=== PATIENT | male | born 1985 | race American Indian/Alaskan Native ===

== ENCOUNTER 2017-06-03 14:37 | Emergency (ER) | payer MEDICAID ==
[2017-06-03] MEDS ORDERED: Ondansetron 4 MG/2 ML SDV IVPUSH ONE (14:57)
[2017-06-03] MEDS ORDERED: Sodium Chloride 0.9% 10 ML Syringe FLUSH PRN (14:57)
[2017-06-03] MEDS ORDERED: Sodium Chloride 0.9% 1,000 ML IV STA (14:57)
[2017-06-03] MEDS ORDERED: HYDROmorphone 1 MG/ML Syringe IVPUSH ONE (14:59)
[2017-06-03] MEDS ORDERED: LORazepam 2 MG/ML MDV IVPUSH ONE (15:00)
[2017-06-03] MEDS: HYDROmorphone 0.5 MG/0.5 ML SYRINGE ONE ×2 (15:14→15:20)
[2017-06-03] MEDS ORDERED: HYDROmorphone 0.5 MG/0.5 ML SYRINGE IVPUSH ONE ×2 (15:16→16:50)
[2017-06-03] MEDS ORDERED: Iopamidol 612 MG/ML 100 ML Bottle IVPUSH ONE (15:36)
[2017-06-03] MEDS ORDERED: Diatrizoate Meglumine/Diatrizoate Sodium 37% 120 ML Bottle PO ONE (15:36)
[2017-06-03] MEDS ORDERED: Sodium Chloride 0.9% 10 ML Syringe FLUSH ONE (15:36)
--- NOTE | 2017-06-03 17:01 | CT ---
CT abdomen and pelvis Technique: Multiple axial sections were obtained from above the dome of the diaphragm inferiorly through the pubic symphysis. Intravenous and oral contrast was utilized. Delayed images were also obtained from above the iliac crest inferiorly through the pubic symphysis. Comparison: No previous abdominal imaging. Findings: Small portion of the visualized lung bases shows nothing acute. Liver shows no focal parenchymal abnormality. Small amount of gastroesophageal reflux is seen into the distal esophagus. Spleen appears within normal limits. Adrenal glands show no nodule. Pancreas is unremarkable. Kidneys show symmetric contrast enhancement without hydronephrosis or mass. Aorta shows no aneurysmal dilatation. No retroperitoneal adenopathy or mesenteric abnormalities are seen. Several surgical clips are seen within the right lower abdomen compatible with previous appendectomy. No pelvic mass or adenopathy is seen. Delayed images shows contrast within the ureters and bladder. No free fluid or inflammatory change is seen. Bone window settings were reviewed which appear within normal limits for the patient's age. Small fat-containing umbilical hernia is incidentally noted. Impression: 1. Small amount of gastroesophageal reflux and other incidental findings. 2. Nothing acute is appreciated. Diagnostic code #2
--- NOTE | 2017-06-03 18:00 | EDM.PDOC ---
ED HPI GENERAL MEDICAL PROBLEM - General Chief Complaint: Abdominal Pain Stated Complaint: [facility] Time Seen by Provider: 06/03/17 14:49 Source of Information: Reports: Patient, EMS History Limitations: Reports: No Limitations - History of Present Illness INITIAL COMMENTS - FREE TEXT/NARRATIVE: The patient presents with right sided abdominal pain. He had his appendix out 2months ago. He was told to take it easy lifting for a few months but he had to lift a heavy feeder and he pulled a muscle in his abdomen. He was seen in the ER in [place] and given a pain med and a muscle relaxer. He has no fever, chills, cough, nausea, vomiting, dysuria or hematuria. He has no other health problems. Onset: Gradual Duration: Week(s): (2) Location: Reports: Abdomen (Right side) Quality: Reports: Sharp Severity: Severe Improves with: Reports: Immobilization Worsens with: Reports: Movement Context: Reports: Activity (He was lifting a feeder 2 weeks ago and pulled a muscle) Associated Symptoms: Reports: No Other Symptoms Right Abdomen Pain Score (Numeric/FACES): 3 - Related Data Allergies Allergy/AdvReac Type Severity Reaction Status Date / Time No Known Allergies Allergy Verified 06/03/17 14:43 Home Meds: Home Meds Cyclobenzaprine HCl 5 mg PO Q8H PRN 06/03/17 [History] Diazepam [Valium] 5 mg PO TID PRN #20 tab 06/03/17 [Rx] Hydrocodone/Acetaminophen [Hydrocodon-Acetaminophen 5-325] 1 - 2 each PO Q6HR PRN #20 tablet 06/03/17 [Rx] Ondansetron [Zofran ODT] 4 mg PO Q6H PRN #20 tab.dis 06/03/17 [Rx] tiZANidine [Zanaflex] 2 mg PO Q8H PRN 06/03/17 [History] Past Medical History Gastrointestinal History: Reports: Other (See Below) Other Gastrointestinal History: torn abdominal muscles past 2 weeks. N/V for past 3 days. States had BM yesterday. Musculoskeletal History: Reports: Other (See Below) Other Musculoskeletal History: muscle tear Dx recently. Endocrine/Metabolic History: Reports: Diabetes, Type II, IDDM Other Endocrine/Metabolic History: states "suppose to be" on insulin--has not taken for 2 months. Social & Family History - Tobacco Use Smoking Status *Q: Current Some Day Smoker Years of Tobacco use: 10 Packs/Tins Daily: 0.2 Second Hand Smoke Exposure: No - Caffeine Use Caffeine Use: Reports: Coffee, Energy Drinks - Recreational Drug Use Recreational Drug Type: Reports: Marijuana/Hashish ED ROS GENERAL - Review of Systems Review Of Systems: See Below Constitutional: Reports: No Symptoms HEENT: Reports: No Symptoms Respiratory: Reports: No Symptoms Cardiovascular: Reports: No Symptoms Endocrine: Reports: No Symptoms GI/Abdominal: Reports: Abdominal Pain. Denies: Nausea, Vomiting : Reports: No Symptoms Musculoskeletal: Reports: No Symptoms Skin: Reports: No Symptoms Neurological: Reports: No Symptoms ED EXAM, GI/ABD - Physical Exam Exam: See Below Exam Limited By: No Limitations General Appearance: Alert, No Apparent Distress Ears: Normal External Exam Nose: Normal Inspection Head: Atraumatic, Normocephalic Neck: Normal Inspection Respiratory/Chest: No Respiratory Distress, Lungs Clear, Normal Breath Sounds Cardiovascular: Regular Rate, Rhythm, No Edema, No Murmur GI/Abdominal Exam: Soft, No Organomegaly, No Mass, Tender (Moderate pain upon palpation to the right side of his abdomen to the upper and lower abdomen) Course - Vital Signs Last Recorded V/S: Last Vital Signs Temp 98.6 F 06/03/17 14:37 Pulse 88 06/03/17 16:00 Resp 36 H 06/03/17 16:00 BP 137/90 06/03/17 16:00 Pulse Ox 99 06/03/17 16:00 - Orders/Labs/Meds Orders: Active Orders 24 hr Category Date Time Status Peripheral IV Care [RC] . DIRECTED Care 06/03/17 14:58 Active Sodium Chloride 0.9% [Saline Flush] Med 06/03/17 14:57 Active 10 ml FLUSH ASDIRECTED PRN ED Antiemetic Medication Reflex [OM.PC] Stat Oth 06/03/17 14:58 Ordered Peripheral IV Insertion Adult [OM.PC] Stat Oth 06/03/17 14:57 Ordered Medication Orders Sodium Chloride (Saline Flush) 10 ml FLUSH ASDIRECTED PRN PRN Reason: Keep Vein Open Last Admin: 06/03/17 15:10 Dose: 10 ml Labs: Laboratory Tests 06/03/17 06/03/17 06/03/17 Range/Units 15:05 15:05 16:30 WBC 7.69 (4.23-9.07) K/mm3 RBC 5.31 (4.63-6.08) M/mm3 Hgb 14.4 (13.7-17.5) gm/L Hct 40.3 (40.1-51.0) % MCV 75.9 L (79.0-92.2) fl MCH 27.1 (25.7-32.2) pg MCHC 35.7 H (32.2-35.5) g/dl RDW Std Deviation 37.8 (35.1-43.9) fL Plt Count 205 (163-337) K/mm3 MPV 8.8 L (9.4-12.3) fl Neut % (Auto) 75.5 H (34.0-67.9) % Lymph % (Auto) 14.7 L (21.8-53.1) % [place] % (Auto) 9.6 (5.3-12.2) % Eos % (Auto) 0 L (0.8-7.0) Baso % (Auto) 0.1 (0.1-1.2) % Neut # (Auto) 5.80 H (1.78-5.38) K/mm3 Lymph # (Auto) 1.13 L (1.32-3.57) K/mm3 [place] # (Auto) 0.74 (0.30-0.82) K/mm3 Eos # (Auto) 0.00 L (0.04-0.54) K/mm3 Baso # (Auto) 0.01 (0.01-0.08) K/mm3 Sodium 133 L (136-145) mEq/L Potassium 3.5 (3.5-5.1) mEq/L Chloride 97 L (98-107) mEq/L Carbon Dioxide 22 (21-32) mEq/L Anion Gap 17.5 H (5-15) BUN 9 (7-18) mg/dL Creatinine 0.7 (0.7-1.3) mg/dL Est Cr Clr Drug Dosing 141.64 mL/min Estimated GFR (MDRD) > 60 (>60) mL/min BUN/Creatinine Ratio 12.9 L (14-18) Glucose 193 H (74-106) mg/dL Calcium 8.5 (8.5-10.1) mg/dL Total Bilirubin 0.6 (0.2-1.0) mg/dL AST 13 L (15-37) U/L ALT 16 (16-63) U/L Alkaline Phosphatase 108 (46-116) U/L Total Protein 7.3 (6.4-8.2) g/dl Albumin 2.9 L (3.4-5.0) g/dl Globulin 4.4 gm/dL Albumin/Globulin Ratio 0.7 L (1-2) Lipase 101 (73-393) U/L Urine Color Yellow (Yellow) Urine Appearance Clear (Clear) Urine pH 6.5 (5.0-8.0) Ur Specific [place] 1.025 (1.005-1.030) Urine Protein 2+ H (Negative) Urine Glucose (UA) 2+ H (Negative) Urine Ketones 3+ H (Negative) Urine Occult Blood Negative (Negative) Urine Nitrite Negative (Negative) Urine Bilirubin 1+ H (Negative) Urine Urobilinogen 0.2 (0.2-1.0) Ur Leukocyte Esterase Negative (Negative) Urine RBC Not seen (0-5) /hpf Urine WBC 0-5 (0-5) /hpf Ur Epithelial Cells 0-5 (0-5) /hpf Urine Bacteria Rare (FEW) /hpf Urine Mucus Not seen (FEW) /hpf Meds: Medications Generic Name Dose Route Start Last Admin Trade Name Angie PRN Reason Stop Dose Admin Sodium Chloride 10 ml 06/03/17 14:57 06/03/17 15:10 Saline Flush FLUSH 10 ml ASDIRECTED PRN Administration Keep Vein Open Discontinued Medications Generic Name Dose Route Start Last Admin Trade Name Frebeatris PRN Reason Stop Dose Admin Diatrizoate Meglum/Diatrizoate Sod 90 ml 06/03/17 15:36 06/03/17 16:47 Gastrografin 37% PO 06/03/17 15:37 90 ml ONETIME ONE Administration Hydromorphone HCl 1 mg 06/03/17 14:59 06/03/17 15:20 Dilaudid IVPUSH 06/03/17 15:00 Not Given ONETIME ONE Hydromorphone HCl Confirm 06/03/17 15:11 06/03/17 15:20 Dilaudid Administered 06/03/17 15:12 Not Given Dose 1 mg .ROUTE .STK-MED ONE Hydromorphone HCl 1 mg 06/03/17 15:16 06/03/17 15:14 Dilaudid IVPUSH 06/03/17 15:17 1 mg ONETIME ONE Administration Hydromorphone HCl 0.5 mg 06/03/17 16:50 06/03/17 17:03 Dilaudid IVPUSH 06/03/17 16:51 0.5 mg ONETIME ONE Administration Sodium Chloride 1,000 mls @ 1,000 mls/hr 06/03/17 14:57 06/03/17 15:18 Normal Saline IV 06/03/17 15:56 1,000 mls/hr .BOLUS STA Administration Iopamidol 100 ml 06/03/17 15:36 06/03/17 16:47 Isovue-300 (61%) IVPUSH 06/03/17 15:37 100 ml ONETIME ONE Administration Lorazepam 1 mg 06/03/17 15:00 06/03/17 15:10 Ativan IVPUSH 06/03/17 15:01 1 mg ONETIME ONE Administration Ondansetron HCl 4 mg 06/03/17 14:57 06/03/17 15:12 Zofran IVPUSH 06/03/17 14:58 4 mg ONETIME ONE Administration Sodium Chloride 10 ml 06/03/17 15:36 06/03/17 16:47 Saline Flush FLUSH 06/03/17 15:37 10 ml ONETIME ONE Administration - Re-Assessments/Exams Free Text/Narrative Re-Assessment/Exam: 06/03/17 17:59 I ordered an IV NS 1L bolus, zofran 4mg IV, dilaudid 1mg IV, ativan 1mg IV, labs , UA and a CT of her abdomen and pelvis. 06/03/17 18:01 His CBC looks good. His Na was a little low at 133. His anion gap was elevated at 17.5. His glucose was elevated at 193. His UA shows no UTI. His CT shows small amount of gastroesophageal reflux and other incidental findings. Nothing acute is appreciated. He had more pain so I gave dilaudid 0.5mg IV. 06/03/17 18:10 He feels better. I feel this is abdominal wall contractions post surgery. I will give him something for the pain and some valium. Departure - Departure Time of Disposition: 18:10 Disposition: Home, Self-Care 01 Condition: Good Clinical Impression: Abdominal wall pain in right upper quadrant, Abdominal wall pain in right lower quadrant Abdominal pain Qualifiers: Abdominal location: upper abdomen, unspecified Qualified Code(s): R10.10 - Upper abdominal pain, unspecified - Discharge Information Prescriptions: Hydrocodone/Acetaminophen [Hydrocodon-Acetaminophen 5-325] 1 - 2 each PO Q6HR PRN #20 tablet PRN Reason: Pain Diazepam [Valium] 5 mg PO TID PRN #20 tab PRN Reason: Pain Ondansetron [Zofran ODT] 4 mg PO Q6H PRN #20 tab.dis PRN Reason: Nausea\\vomiting Referrals: PCP,[place] [Primary Care Provider] - Geovanna Parikh [Physician] - Forms: ED Department Discharge Additional Instructions: Take the medication as prescribed for the abdominal pain. You may also take some zofran for the nausea and vomiting. Follow up with your doctor or you can follow up with Dr Parikh at our clinic. Please return if you are worse. - My Orders Last 24 Hours: My Active Orders 06/03/17 14:57 Sodium Chloride 0.9% [Saline Flush] 10 ml FLUSH ASDIRECTED PRN Peripheral IV Insertion Adult [OM.PC] Stat 06/03/17 14:58 Peripheral IV Care [RC] . DIRECTED ED Antiemetic Medication Reflex [OM.PC] Stat - Assessment/Plan Last 24 Hours: My Active Orders 06/03/17 14:57 Sodium Chloride 0.9% [Saline Flush] 10 ml FLUSH ASDIRECTED PRN Peripheral IV Insertion Adult [OM.PC] Stat 06/03/17 14:58 Peripheral IV Care [RC] . DIRECTED ED Antiemetic Medication Reflex [OM.PC] Stat
== END 2017-06-03 18:30 | disposition home or self-care (01) ==
LOC: JD.ED 14:37
DX: R10.10 Upper abdominal pain, unspecified (principal); R10.31 Right lower quadrant pain; E11.9 Type 2 diabetes mellitus without complications; F17.210 Nicotine dependence, cigarettes, uncomplicated
CPT/HCPCS: 36415; 74177; 80053; 81001; 83690; 85025; 96361; 96374; 96375; 96376; 99285; J1170; J2060; J2405; J7040; J7050; Q9963; Q9967; 99284

== ENCOUNTER 2017-12-15 19:22 | Emergency (ER) | payer MEDICAID ==
[2017-12-15] MEDS ORDERED: Ondansetron 4 MG/2 ML SDV IVPUSH ONE ×2 (21:34→23:04)
[2017-12-15] MEDS ORDERED: HYDROmorphone 1 MG/ML Syringe IVPUSH ONE (21:49)
[2017-12-15] MEDS ORDERED: HYDROmorphone 0.5 MG/0.5 ML SYRINGE IVPUSH STA (23:06)
--- NOTE | 2017-12-15 23:07 | EDM.PDOC ---
ED HPI GENERAL MEDICAL PROBLEM - General Chief Complaint: Abdominal Pain Stated Complaint: [facility] Time Seen by Provider: 12/15/17 22:05 Source of Information: Reports: Patient, RN Notes Reviewed History Limitations: Reports: No Limitations - History of Present Illness INITIAL COMMENTS - FREE TEXT/NARRATIVE: The patient states that he has been constipated since , 12/11/2017. He took prune juice on Friday morning, 12/12/2017, followed by a bowel movement, nausea and vomiting. He states that this made him feel better. On Friday, 2017, he felt constipated again. Yesterday, 12/14/2017, the patient had nausea, emesis, and dry heaves. He had a bowel movement both yesterday and today , but his nausea and emesis have persisted. The patient also reports abdominal pain felt along the right side of his abdomen and across his lower abdomen, along with some pain in his right flank, since Friday evening, 12/13/2017. It is crampy and sharp in character, and waxes and wanes. The patient states that it is worse if he eats. No recent fever. No recent urinary symptoms. The patient states that he had similar symptoms on 06/03/2017, for which she was seen in this ED. Reviewing those medical records, she presented at that time with right-sided abdominal pain after lifting something heavy at work, about 2 months following an appendectomy. Workup included a CBC, CMP, lipase, urinalysis , and CT scan of the abdomen and pelvis. His sodium was found to be 133, and his blood glucose elevated at 193. His CT scan found a small amount of GERD, and other incidental findings, otherwise, his workup was unremarkable. The patient received a total of 3.5 mg IV Dilaudid in the ED, along with 1 mg IV Ativan. He was discharged home with 20 tablets of [place], 20 tablets of Valium, and Zofran. The patient states that he has diabetes, and that he checks his blood glucose every other day. A normal range for him is between 220 and 250. He states that he is compliant with all of his medications. The patient states that he smokes marijuana on occasion, most recently at noon today. The patient states that his PCP is at [facility]. Lower Abdominal Pain Score (Numeric/FACES): 8 - Related Data Allergies Allergy/AdvReac Type Severity Reaction Status Date / Time No Known Allergies Allergy Verified 12/19/17 15:48 Home Meds: Home Meds Cyclobenzaprine HCl 5 mg PO Q8H PRN 06/03/17 [History] Hydrocodone/Acetaminophen [Hydrocodon-Acetaminophen 5-325] 1 - 2 each PO Q6HR PRN #20 tablet 06/03/17 [Rx] tiZANidine [Zanaflex] 2 mg PO Q8H PRN 06/03/17 [History] Ondansetron [Zofran ODT] 4 mg PO Q6H PRN #20 tab.dis 12/17/17 [Rx] Ondansetron [Zofran ODT] 4 mg PO Q6H PRN #15 tab.dis 12/19/17 [Rx] Past Medical History Cardiovascular History: Reports: High Cholesterol, Hypertension Endocrine/Metabolic History: Reports: Diabetes, Type II - Past Surgical History HEENT Surgical History: Reports: Oral Surgery (wisdom teeth extraction) GI Surgical History: Reports: Appendectomy (Feb 2017, at [facility]) Social & Family History - Tobacco Use Smoking Status *Q: Current Some Day Smoker Years of Tobacco use: 17 Packs/Tins Daily: 0.2 Packs/Tins Daily Comment: Down from 04/08 ppd - Caffeine Use Caffeine Use: Reports: Coffee, Energy Drinks - Alcohol Use Alcohol Use History: Yes Alcohol Use Frequency: Socially - Recreational Drug Use Recreational Drug Use: Yes Drug Use in Last 12 Months: Yes Recreational Drug Type: Reports: Marijuana/Hashish (smokes on occasion, last = ) Recreational Drug Use Frequency: Socially - Living Situation & Occupation Living situation: Reports: Single, with Significant Other (Girlfriend) Occupation: Employed (Maintenance) ED ROS GENERAL - Review of Systems Review Of Systems: ROS reveals no pertinent complaints other than HPI. ED EXAM, GI/ABD - Physical Exam Exam: See Below Exam Limited By: No Limitations General Appearance: Alert, WD/WN, Mild Distress (complaining of abdominal pain) Eyes: Bilateral: Normal Appearance, EOMI Ears: Normal External Exam, Hearing Grossly Normal Nose: Normal Inspection, No Blood Throat/Mouth: Normal Inspection, Normal Lips, Normal Voice, No Airway Compromise Head: Atraumatic, Normocephalic Neck: Normal Inspection, Full Range of Motion Respiratory/Chest: No Respiratory Distress, Lungs Clear, Normal Breath Sounds, No Accessory Muscle Use Cardiovascular: Normal Peripheral Pulses, Regular Rate, Rhythm, No Edema, No Gallop, No JVD, No Murmur, No Rub GI/Abdominal Exam: Soft, No Organomegaly, No Distention, No Abnormal Bruit, No Mass, Tender (generalized, non-focal), Abnormal Bowel Sounds (decreased) (Male) Exam: Deferred Rectal (Males) Exam: Deferred Back Exam: Normal Inspection, Full Range of Motion. No: CVA Tenderness (L), CVA Tenderness (R) Extremities: Normal Inspection, Normal Range of Motion, No Pedal Edema, Normal Capillary Refill Neurological: Alert, Oriented, Normal Cognition, No Motor/Sensory Deficits Psychiatric: Normal Affect Skin Exam: Warm, Dry, Intact, Normal Color, No Rash Course - Vital Signs Last Recorded V/S: Last Vital Signs Temp 35.9 C 12/15/17 19:29 Pulse 98 12/15/17 19:29 Resp 18 12/15/17 19:29 BP 129/90 12/15/17 19:29 Pulse Ox 100 12/15/17 19:29 - Orders/Labs/Meds Labs: Laboratory Tests 12/15/17 12/15/17 12/16/17 Range/Units 21:30 21:30 02:10 WBC 13.53 H (4.23-9.07) K/mm3 RBC 5.68 (4.63-6.08) M/mm3 Hgb 16.2 (13.7-17.5) gm/L Hct 45.5 (40.1-51.0) % MCV 80.1 (79.0-92.2) fl MCH 28.5 (25.7-32.2) pg MCHC 35.6 H (32.2-35.5) g/dl RDW Std Deviation 37.8 (35.1-43.9) fL Plt Count 244 (163-337) K/mm3 MPV 9.1 L (9.4-12.3) fl Neutrophils % (Manual) 95 H (40-60) % Band Neutrophils % 0 (0-10) % Lymphocytes % (Manual) 5 L (20-40) % Atypical Lymphs % 0 % Monocytes % (Manual) 0 L (2-10) % Eosinophils % (Manual) 0 L (0.8-7.0) % Basophils % (Manual) 0 L (0.2-1.2) Platelet Estimate Adequate Plt Morphology Comment Normal RBC Morph Comment Normal Sodium 140 (136-145) mEq/L Potassium 4.2 (3.5-5.1) mEq/L Chloride 102 (98-107) mEq/L Carbon Dioxide 23 (21-32) mEq/L Anion Gap 19.2 H (5-15) BUN 22 H (7-18) mg/dL Creatinine 1.0 (0.7-1.3) mg/dL Est Cr Clr Drug Dosing 98.23 mL/min Estimated GFR (MDRD) > 60 (>60) mL/min BUN/Creatinine Ratio 22.0 H (14-18) Glucose 222 H (74-106) mg/dL Calcium 9.5 (8.5-10.1) mg/dL Total Bilirubin 0.7 (0.2-1.0) mg/dL AST 23 (15-37) U/L ALT 49 (16-63) U/L Alkaline Phosphatase 103 (46-116) U/L C-Reactive Protein 0.3 (<1.0) mg/dL Total Protein 8.7 H (6.4-8.2) g/dl Albumin 4.4 (3.4-5.0) g/dl Globulin 4.3 gm/dL Albumin/Globulin Ratio 1.0 (1-2) Lipase 73 (73-393) U/L Urine Color Yellow (Yellow) Urine Appearance Clear (Clear) Urine pH 5.5 (5.0-8.0) Ur Specific [place] 1.015 (1.005-1.030) Urine Protein Negative (Negative) Urine Glucose (UA) 2+ H (Negative) Urine Ketones 3+ H (Negative) Urine Occult Blood Trace-intact H (Negative) Urine Nitrite Negative (Negative) Urine Bilirubin Negative (Negative) Urine Urobilinogen 0.2 (0.2-1.0) Ur Leukocyte Esterase Negative (Negative) Urine RBC 0-5 (0-5) /hpf Urine WBC 0-5 (0-5) /hpf Ur Epithelial Cells Not seen (0-5) /hpf Urine Bacteria Not seen (FEW) /hpf Urine Mucus Few (FEW) /hpf Meds: Medications Discontinued Medications Generic Name Dose Route Start Last Admin Trade Name Angie PRN Reason Stop Dose Admin Hydromorphone HCl 0.5 mg 12/15/17 21:49 12/15/17 21:55 Dilaudid IVPUSH 12/15/17 21:50 0.5 mg ONETIME ONE Administration Hydromorphone HCl 1 mg 12/15/17 23:06 12/15/17 23:23 Dilaudid IVPUSH 12/15/17 23:07 1 mg ONETIME STA Administration Hydromorphone HCl 1 mg 12/16/17 00:40 12/16/17 00:45 Dilaudid IVPUSH 12/16/17 00:41 1 mg ONETIME STA Administration Sodium Chloride 1,000 mls @ 150 mls/hr 12/15/17 23:15 12/15/17 23:22 Normal Saline IV 150 mls/hr ASDIRECTED [place] Administration Ondansetron HCl 4 mg 12/15/17 21:34 12/15/17 21:44 Zofran IVPUSH 12/15/17 21:35 4 mg ONETIME ONE Administration Ondansetron HCl 4 mg 12/15/17 23:04 12/15/17 23:23 Zofran IVPUSH 12/15/17 23:05 4 mg ONETIME ONE Administration - Re-Assessments/Exams Free Text/Narrative Re-Assessment/Exam: 12/15/17 23:07 I'm concerned that there is something significant occurring with this patient, as he has significant abdominal pain and tenderness. The patient's blood work is unremarkable. I have ordered a urinalysis and a CT scan of the abdomen and pelvis with oral and IV contrast. He will receive additional Dilaudid, additional Zofran, and IV fluid. 12/15/17 02:45 CT of the abdomen and pelvis with oral and IV contrast is read by [facility] as: Status post appendectomy No acute intra-abdominal process 12/16/17 03:07 Test results discussed with the patient. Kamila's workup is entirely unremarkable, and does not explain the cause of his pain. I do not see an indication to admit the patient to the hospital. I offered to prescribe some Zofran, and will send a prescription to [facility] in [place]. The patient then asked for a prescription for pain medication. I explained that with a negative workup, I was not in a position to prescribe pain medication, and that he would have to take Tylenol or ibuprofen. The patient immediately turned hostile and stated that I was calling him a faker and that I told him that I didn't want to prescribe pain medication simply because I didn't feel like it, and that he didn't like what I was saying, which is not what I had just told him. This behavior, however, in conjunction with his negative workup, is strongly suggestive of drug-seeking behavior. Departure - Departure Time of Disposition: 03:02 Disposition: Home, Self-Care 01 Condition: Good Clinical Impression: Drug-seeking behavior Nausea & vomiting Qualifiers: Vomiting type: unspecified Vomiting Intractability: non-intractable Qualified Code(s): R11.2 - Nausea with vomiting, unspecified - Discharge Information *PRESCRIPTION DRUG MONITORING PROGRAM REVIEWED*: Not Applicable *COPY OF PRESCRIPTION DRUG MONITORING REPORT IN PATIENT DION: Not Applicable Instructions: Nausea and Vomiting, Adult, [id number] Referrals: PCP,None [Primary Care Provider] - Forms: ED Department Discharge Additional Instructions: You were seen in the emergency room for nausea, vomiting, and abdominal pain. Workup in the ER included blood work, urinalysis, and a CT scan of your abdomen and pelvis. Your entire workup was unremarkable, and does not explain the cause of your pain. A prescription for the anti-nausea medicine Zofran has been sent to [facility], [address] [place] [address]. Dissolve one tablet of Zofran on your tongue up to every 8 hours, as needed for nausea/vomiting. Stay well hydrated. Take [id number] Tylenol or ibuprofen as needed for pain. If you need something stronger, please see your primary care physician. If any other problems, please do not hesitate to return to the ER.
[2017-12-15] MEDS ORDERED: Sodium Chloride 0.9% 1,000 ML IV SCH (23:15)
[2017-12-16] MEDS ORDERED: HYDROmorphone 0.5 MG/0.5 ML SYRINGE IVPUSH STA (00:40)
--- NOTE | 2017-12-16 07:45 | CT ---
CT abdomen and pelvis Technique: Multiple axial sections were obtained from above the dome of the diaphragm inferiorly through the pubic symphysis. Intravenous and oral contrast was utilized. Delayed images were obtained through the bladder. Comparison: Prior CT abdomen and pelvis exam of 06/03/17. Findings: Visualized lung bases show nothing acute. Liver shows no focal parenchymal abnormality. Spleen appears within normal limits. Adrenal glands show no nodule. Pancreas is within normal limits. Gallbladder contains no calcified gallstones. Kidneys show symmetric contrast enhancement without hydronephrosis or mass. Aorta shows no aneurysm. Surgical material is seen off the tip of the cecum compatible with previous appendectomy. No retroperitoneal adenopathy or mesenteric abnormalities are seen. No pelvic mass or adenopathy is seen. Delayed images show contrast within the distal ureters and bladder. Bone window settings were reviewed which appear within normal limits for the patient's age. Impression: 1. Nothing acute is seen on CT study of the abdomen and pelvis. Diagnostic code #2 I agree with preliminary report issued by [facility] ([facility] preliminary report dictated on 12/16/17, 3:51 AM Central Time)
== END 2017-12-16 03:12 | disposition home or self-care (01) ==
LOC: JD.ED 19:22
DX: R11.2 Nausea with vomiting, unspecified (principal); R10.84 Generalized abdominal pain; Z76.5 Malingerer [conscious simulation]; Z90.49 Acquired absence of other specified parts of digestive tract; F17.210 Nicotine dependence, cigarettes, uncomplicated; I10 Essential (primary) hypertension; E11.9 Type 2 diabetes mellitus without complications
CPT/HCPCS: 36415; 74177; 80053; 81001; 83690; 85007; 85027; 86140; 96361; 96374; 96375; 96376; 99285; J1170; J2405; J7040

== ENCOUNTER 2017-12-17 16:40 | Emergency (ER) | payer MEDICAID ==
[2017-12-17] MEDS ORDERED: Sodium Chloride 0.9% 10 ML Syringe FLUSH PRN (16:56)
[2017-12-17] MEDS ORDERED: Sodium Chloride 0.9% 1,000 ML IV STA (16:56)
[2017-12-17] MEDS ORDERED: Ondansetron 4 MG/2 ML SDV IVPUSH ONE (16:56)
[2017-12-17] MEDS ORDERED: HYDROmorphone 0.5 MG/0.5 ML SYRINGE IVPUSH ONE ×2 (16:57→18:35)
--- NOTE | 2017-12-17 17:04 | EDM.PDOC ---
ED HPI GENERAL MEDICAL PROBLEM - General Chief Complaint: Abdominal Pain Stated Complaint: [facility] Time Seen by Provider: 12/17/17 16:45 Source of Information: Reports: Patient, EMS History Limitations: Reports: No Limitations - History of Present Illness INITIAL COMMENTS - FREE TEXT/NARRATIVE: The patient presents with lower abdominal pain. This has been going on since Friday. He was seen here on Friday and he had a complete work up to include labs and a CT of his abdomen and pelvis. He had nothing acute found. He was offered some zofran and he wanted something for the pain but he did not get anything. He went home and felt better and ate a large meal and the pain, nausea and vomiting started again. He has no fever or chills. He has no chest pain, shortness of breath, or diarrhea. He had a normal bowel movement last night. Onset: Gradual Duration: Day(s): Location: Reports: Abdomen Quality: Reports: Sharp Severity: Severe Improves with: Reports: None Worsens with: Reports: None Associated Symptoms: Reports: Nausea/Vomiting. Denies: Chest Pain, Fever/Chills , Headaches, Shortness of Breath Abdominal Pain Score (Numeric/FACES): 10 - Related Data Allergies Allergy/AdvReac Type Severity Reaction Status Date / Time No Known Allergies Allergy Verified 12/17/17 16:45 Home Meds: Home Meds Cyclobenzaprine HCl 5 mg PO Q8H PRN 06/03/17 [History] Hydrocodone/Acetaminophen [Hydrocodon-Acetaminophen 5-325] 1 - 2 each PO Q6HR PRN #20 tablet 06/03/17 [Rx] Ondansetron [Zofran ODT] 4 mg PO Q6H PRN #20 tab.dis 06/03/17 [Rx] diazePAM [Valium] 5 mg PO TID PRN #20 tab 06/03/17 [Rx] tiZANidine [Zanaflex] 2 mg PO Q8H PRN 06/03/17 [History] Ondansetron [Zofran ODT] 1 tab PO Q8H PRN #10 tab.dis 12/16/17 [Rx] Hydrocodone/Acetaminophen [Hydrocodon-Acetaminophen 5-325] 1 - 2 each PO Q6HR PRN #10 tablet 12/17/17 [Rx] Ondansetron [Zofran ODT] 4 mg PO Q6H PRN #20 tab.dis 12/17/17 [Rx] Past Medical History Gastrointestinal History: Reports: Other (See Below) Other Gastrointestinal History: torn abdominal muscles past 2 weeks. N/V for past 3 days. States had BM yesterday. Musculoskeletal History: Reports: Other (See Below) Other Musculoskeletal History: muscle tear Dx recently. Endocrine/Metabolic History: Reports: Diabetes, Type II, IDDM Other Endocrine/Metabolic History: states "suppose to be" on insulin--has not taken for 2 months. - Past Surgical History GI Surgical History: Reports: Appendectomy Social & Family History - Tobacco Use Smoking Status *Q: Current Every Day Smoker Years of Tobacco use: 18 Packs/Tins Daily: 1 - Caffeine Use Caffeine Use: Reports: Soda - Recreational Drug Use Recreational Drug Use: Yes Drug Use in Last 12 Months: Yes Recreational Drug Type: Reports: Marijuana/Hashish ED ROS GENERAL - Review of Systems Review Of Systems: See Below Constitutional: Reports: No Symptoms HEENT: Reports: No Symptoms Respiratory: Reports: No Symptoms Cardiovascular: Reports: No Symptoms Endocrine: Reports: No Symptoms GI/Abdominal: Reports: Abdominal Pain, Nausea, Vomiting. Denies: Diarrhea : Reports: No Symptoms Musculoskeletal: Reports: No Symptoms ED EXAM, GI/ABD - Physical Exam Exam: See Below Exam Limited By: No Limitations General Appearance: Alert, Mild Distress Ears: Normal External Exam Nose: Normal Inspection Head: Atraumatic, Normocephalic Neck: Normal Inspection Respiratory/Chest: No Respiratory Distress, Lungs Clear, Normal Breath Sounds Cardiovascular: Regular Rate, Rhythm, No Edema, No Murmur GI/Abdominal Exam: Soft, Non-Tender, No Organomegaly, No Mass Back Exam: Normal Inspection Extremities: Normal Inspection Neurological: Alert, Oriented, No Motor/Sensory Deficits Course - Vital Signs Last Recorded V/S: Last Vital Signs Temp 97.1 F 12/17/17 16:45 Pulse 79 12/17/17 16:45 Resp 20 12/17/17 16:45 BP 161/93 H 12/17/17 16:45 Pulse Ox 99 12/17/17 16:45 - Orders/Labs/Meds Orders: Active Orders 24 hr Category Date Time Status Peripheral IV Care [RC] . DIRECTED Care 12/17/17 16:56 Active Abdomen Series w Chest 1V [CR] Stat Exams 12/17/17 16:56 Taken Sodium Chloride 0.9% [Saline Flush] Med 12/17/17 16:56 Active 10 ml FLUSH ASDIRECTED PRN ED Antiemetic Medication Reflex [OM.PC] Stat Oth 12/17/17 16:56 Ordered Peripheral IV Insertion Adult [OM.PC] Stat Oth 12/17/17 16:56 Ordered Medication Orders Sodium Chloride (Saline Flush) 10 ml FLUSH ASDIRECTED PRN PRN Reason: Keep Vein Open Last Admin: 12/17/17 17:12 Dose: 10 ml Labs: Laboratory Tests 12/17/17 12/17/17 Range/Units 17:20 17:20 WBC 7.58 (4.23-9.07) K/mm3 RBC 5.04 (4.63-6.08) M/mm3 Hgb 14.6 (13.7-17.5) gm/L Hct 40.4 (40.1-51.0) % MCV 80.2 (79.0-92.2) fl MCH 29.0 (25.7-32.2) pg MCHC 36.1 H (32.2-35.5) g/dl RDW Std Deviation 37.2 (35.1-43.9) fL Plt Count 219 (163-337) K/mm3 MPV 9.1 L (9.4-12.3) fl Neut % (Auto) 84.0 H (34.0-67.9) % Lymph % (Auto) 11.1 L (21.8-53.1) % [place] % (Auto) 4.5 L (5.3-12.2) % Eos % (Auto) 0.3 L (0.8-7.0) Baso % (Auto) 0.1 (0.1-1.2) % Neut # (Auto) 6.37 H (1.78-5.38) K/mm3 Lymph # (Auto) 0.84 L (1.32-3.57) K/mm3 [place] # (Auto) 0.34 (0.30-0.82) K/mm3 Eos # (Auto) 0.02 L (0.04-0.54) K/mm3 Baso # (Auto) 0.01 (0.01-0.08) K/mm3 Sodium 139 (136-145) mEq/L Potassium 3.8 (3.5-5.1) mEq/L Chloride 102 (98-107) mEq/L Carbon Dioxide 24 (21-32) mEq/L Anion Gap 16.8 H (5-15) BUN 15 (7-18) mg/dL Creatinine 0.9 (0.7-1.3) mg/dL Est Cr Clr Drug Dosing 109.15 mL/min Estimated GFR (MDRD) > 60 (>60) mL/min BUN/Creatinine Ratio 16.7 (14-18) Glucose 203 H (74-106) mg/dL Calcium 9.0 (8.5-10.1) mg/dL Total Bilirubin 0.8 (0.2-1.0) mg/dL AST 20 (15-37) U/L ALT 39 (16-63) U/L Alkaline Phosphatase 89 (46-116) U/L Total Protein 7.7 (6.4-8.2) g/dl Albumin 4.1 (3.4-5.0) g/dl Globulin 3.6 gm/dL Albumin/Globulin Ratio 1.1 (1-2) Lipase 138 (73-393) U/L Meds: Medications Generic Name Dose Route Start Last Admin Trade Name Freq PRN Reason Stop Dose Admin Sodium Chloride 10 ml 12/17/17 16:56 12/17/17 17:12 Saline Flush FLUSH 10 ml ASDIRECTED PRN Administration Keep Vein Open Discontinued Medications Generic Name Dose Route Start Last Admin Trade Name Freq PRN Reason Stop Dose Admin Hydromorphone HCl 0.5 mg 12/17/17 16:57 12/17/17 17:09 Dilaudid IVPUSH 12/17/17 16:58 0.5 mg ONETIME ONE Administration Sodium Chloride 1,000 mls @ 1,000 mls/hr 12/17/17 16:56 12/17/17 17:09 Normal Saline IV 12/17/17 17:55 1,000 mls/hr .BOLUS STA Administration Ondansetron HCl 4 mg 12/17/17 16:56 12/17/17 17:08 Zofran IVPUSH 12/17/17 16:57 4 mg ONETIME ONE Administration - Re-Assessments/Exams Free Text/Narrative Re-Assessment/Exam: 12/17/17 17:16 I ordered an IV NS 1L bolus, zofran 4mg IV, dilaudid 0.5mg IV, labs, UA and an x -ray of his abdomen. 12/17/17 18:33 His CBC looks good. His anion gap was elevated at 16.8. His glucose was elevated at 203. His lipase was normal. His abdominal x-ray looks good. His could be marijuana induced hyperemesis. Departure - Departure Time of Disposition: 18:40 Disposition: Home, Self-Care 01 Condition: Good Clinical Impression: Abdominal pain Qualifiers: Abdominal location: upper abdomen, unspecified Qualified Code(s): R10.10 - Upper abdominal pain, unspecified Nausea & vomiting Qualifiers: Vomiting type: unspecified Vomiting Intractability: non-intractable Qualified Code(s): R11.2 - Nausea with vomiting, unspecified - Discharge Information *PRESCRIPTION DRUG MONITORING PROGRAM REVIEWED*: No *COPY OF PRESCRIPTION DRUG MONITORING REPORT IN PATIENT DION: No Prescriptions: Hydrocodone/Acetaminophen [Hydrocodon-Acetaminophen 5-325] 1 - 2 each PO Q6HR PRN #10 tablet PRN Reason: Pain Ondansetron [Zofran ODT] 4 mg PO Q6H PRN #20 tab.dis PRN Reason: Nausea\\vomiting Referrals: PCP,None [Primary Care Provider] - Daphnie Martell NP [ED Midlevel Provider] - 1 Week Forms: ED Department Discharge Additional Instructions: Try to stop smoking marijuana. I think that is causing your symptoms. Drink plenty of fluids. Take some magnesium citrate to help you have a bowel movement. Take the zofran as needed for nausea and vomiting. Take hydrocodone as needed for pain. Please return if you are worse. - My Orders Last 24 Hours: My Active Orders 12/17/17 16:56 Peripheral IV Care [RC] . DIRECTED Abdomen Series w Chest 1V [CR] Stat Sodium Chloride 0.9% [Saline Flush] 10 ml FLUSH ASDIRECTED PRN ED Antiemetic Medication Reflex [OM.PC] Stat Peripheral IV Insertion Adult [OM.PC] Stat - Assessment/Plan Last 24 Hours: My Active Orders 12/17/17 16:56 Peripheral IV Care [RC] . DIRECTED Abdomen Series w Chest 1V [CR] Stat Sodium Chloride 0.9% [Saline Flush] 10 ml FLUSH ASDIRECTED PRN ED Antiemetic Medication Reflex [OM.PC] Stat Peripheral IV Insertion Adult [OM.PC] Stat
--- NOTE | 2017-12-18 07:30 | CR ---
Abdominal series: Supine and upright views of the abdomen were obtained as well as frontal view of the chest. Comparison: No prior abdominal x-ray or chest x-ray, previous CT exam of 12/16/17. Heart size and mediastinum are normal. Lungs are clear. Bowel gas pattern appears normal. Surgical material is seen within the right lower abdomen. No discrete soft tissue abnormality or free air is seen. Calcifications are seen within the pelvis most likely representing phleboliths. Incidental bone island is noted within the right hip. Impression: 1. Incidental findings. Nothing acute is appreciated on abdominal series. Diagnostic code #2
== END 2017-12-17 18:56 | disposition home or self-care (01) ==
LOC: JD.ED 16:40
DX: R10.10 Upper abdominal pain, unspecified (principal); R11.2 Nausea with vomiting, unspecified; F17.210 Nicotine dependence, cigarettes, uncomplicated; E11.9 Type 2 diabetes mellitus without complications
CPT/HCPCS: 36415; 74022; 80053; 83690; 85025; 96361; 96374; 96375; 96376; 99285; J1170; J2405; J7040; J7050

== ENCOUNTER 2017-12-19 15:42 | Emergency (ER) | payer MEDICAID ==
[2017-12-19] MEDS ORDERED: diphenhydrAMINE 50 MG/ML SDV IVPUSH ONE (17:21)
[2017-12-19] MEDS ORDERED: Sodium Chloride 0.9% 1,000 ML IV ONE ×2 (17:21→18:55)
[2017-12-19] MEDS ORDERED: Metoclopramide 10 MG/2 ML SDV IVPUSH ONE (17:21)
[2017-12-19] MEDS ORDERED: Ketorolac 30 MG/ML SDV IVPUSH ONE (17:21)
[2017-12-19] MEDS ORDERED: Haloperidol Lactate 5 MG/ML SDV IVPUSH ONE (19:55)
--- NOTE | 2017-12-19 19:55 | EDM.PDOC ---
ED HPI GENERAL MEDICAL PROBLEM - General Chief Complaint: Gastrointestinal Problem Stated Complaint: [facility] Time Seen by Provider: 12/19/17 17:00 Source of Information: Reports: Patient, Old Records (recent ED visits) History Limitations: Reports: No Limitations - History of Present Illness INITIAL COMMENTS - FREE TEXT/NARRATIVE: 32-year-old male arrives via [facility] for evaluation and treatment of abdominal pain. This is the patient's third visit the ER this week for similar complaints. He was seen in the ER on December 15 and December 17. He had a full workup done on December 15 including labs and a CT. No etiology was found. Discharged home. He was seen again on the . Had an x-ray and labs done at that time which showed no abnormalities. He was discharged home with pain medication. States he attempted to take these but vomited them up. Patient presents today as he reports the abdominal pain returned and is worsening. He states this located on his lower side of this abdomen and the right side of his abdomen. He reports associated symptoms of nausea and vomiting. He states he has been feeling feverish but has not checked his temperature at home. Has also been feeling chilled. Last bowel movement was this morning around 8 AM. No blood in his stool. No diarrhea. He reports that he attempted to eat today but that seemed to worsen the pain. Patient received 100 mcg of fentanyl and 5 mg of morphine en route to the ED. reports has helped with this pain but is now worsening again. Patient reports that he uses marijuana for recreational purposes. States he does not recall last time he used marijuana. Of note the patient has appreciated that hot showers seem to improve his abdominal pain. Previous abdominal surgeries including laparoscopic appendectomy. Right Abdomen Pain Score (Numeric/FACES): 9 - Related Data Allergies Allergy/AdvReac Type Severity Reaction Status Date / Time No Known Allergies Allergy Verified 12/19/17 15:48 Home Meds: Home Meds Cyclobenzaprine HCl 5 mg PO Q8H PRN 06/03/17 [History] Hydrocodone/Acetaminophen [Hydrocodon-Acetaminophen 5-325] 1 - 2 each PO Q6HR PRN #20 tablet 06/03/17 [Rx] tiZANidine [Zanaflex] 2 mg PO Q8H PRN 06/03/17 [History] Ondansetron [Zofran ODT] 4 mg PO Q6H PRN #20 tab.dis 12/17/17 [Rx] Ondansetron [Zofran ODT] 4 mg PO Q6H PRN #15 tab.dis 12/19/17 [Rx] Past Medical History Gastrointestinal History: Reports: Other (See Below) Other Gastrointestinal History: torn abdominal muscles past 2 weeks. N/V for past 3 days. States had BM yesterday. Musculoskeletal History: Reports: Other (See Below) Other Musculoskeletal History: muscle tear Dx recently. Endocrine/Metabolic History: Reports: Diabetes, Type II, IDDM Other Endocrine/Metabolic History: states "suppose to be" on insulin--has not taken for 2 months. - Past Surgical History GI Surgical History: Reports: Appendectomy Social & Family History - Tobacco Use Smoking Status *Q: Never Smoker - Caffeine Use Caffeine Use: Reports: Soda - Recreational Drug Use Recreational Drug Use: No ED ROS GENERAL - Review of Systems Review Of Systems: See Below Constitutional: Reports: Fever, Chills, Malaise GI/Abdominal: Reports: Abdominal Pain (lower abdomen and right side of abdomen) , Nausea, Vomiting. Denies: Bloody Stool, Diarrhea : Reports: No Symptoms ED EXAM, GI/ABD - Physical Exam Exam: See Below Exam Limited By: No Limitations General Appearance: Alert, WD/WN, Moderate Distress Throat/Mouth: Normal Inspection, Normal Voice, No Airway Compromise Respiratory/Chest: No Respiratory Distress, Lungs Clear, Normal Breath Sounds Cardiovascular: Normal Peripheral Pulses, Regular Rate, Rhythm, No Murmur GI/Abdominal Exam: Normal Bowel Sounds, Soft, Tender (diffusely tender to mild palpation, question exacerbation of symptoms). No: Rigid Back Exam: No: CVA Tenderness (L), CVA Tenderness (R) Neurological: Alert, Oriented, Normal Cognition Psychiatric: Normal Affect, Normal Mood Skin Exam: Warm, Dry, Normal Color Course - Vital Signs Last Recorded V/S: Last Vital Signs Temp 98.6 F 12/19/17 15:46 Pulse 71 12/19/17 15:46 Resp 16 12/19/17 15:46 BP 177/105 H 12/19/17 15:46 Pulse Ox 100 12/19/17 15:46 - Orders/Labs/Meds Labs: Laboratory Tests 12/19/17 12/19/17 12/19/17 Range/Units 18:10 18:10 19:03 WBC 7.97 (4.23-9.07) K/mm3 RBC 4.67 (4.63-6.08) M/mm3 Hgb 13.4 L (13.7-17.5) gm/L Hct 37.0 L (40.1-51.0) % MCV 79.2 (79.0-92.2) fl MCH 28.7 (25.7-32.2) pg MCHC 36.2 H (32.2-35.5) g/dl RDW Std Deviation 35.6 (35.1-43.9) fL Plt Count 237 (163-337) K/mm3 MPV 8.7 L (9.4-12.3) fl Neutrophils % (Manual) 76 H (40-60) % Band Neutrophils % 2 (0-10) % Lymphocytes % (Manual) 17 L (20-40) % Atypical Lymphs % 0 % Monocytes % (Manual) 5 (2-10) % Eosinophils % (Manual) 0 L (0.8-7.0) % Basophils % (Manual) 0 L (0.2-1.2) Platelet Estimate Adequate Plt Morphology Comment Normal Microcytosis 1+ slight RBC Morph Comment Not Reportable Sodium 139 (136-145) mEq/L Potassium 3.6 (3.5-5.1) mEq/L Chloride 102 (98-107) mEq/L Carbon Dioxide 25 (21-32) mEq/L Anion Gap 15.6 H (5-15) BUN 10 (7-18) mg/dL Creatinine 0.7 (0.7-1.3) mg/dL Est Cr Clr Drug Dosing 140.33 mL/min Estimated GFR (MDRD) > 60 (>60) mL/min BUN/Creatinine Ratio 14.3 (14-18) Glucose 147 H (74-106) mg/dL Calcium 8.4 L (8.5-10.1) mg/dL Total Bilirubin 0.9 (0.2-1.0) mg/dL AST 13 L (15-37) U/L ALT 24 (16-63) U/L Alkaline Phosphatase 83 (46-116) U/L C-Reactive Protein < 0.2 (<1.0) mg/dL Total Protein 7.1 (6.4-8.2) g/dl Albumin 3.8 (3.4-5.0) g/dl Globulin 3.3 gm/dL Albumin/Globulin Ratio 1.2 (1-2) Lipase 131 (73-393) U/L Urine Color Yellow (Yellow) Urine Appearance Clear (Clear) Urine pH 6.0 (5.0-8.0) Ur Specific [place] 1.025 (1.005-1.030) Urine Protein Negative (Negative) Urine Glucose (UA) 1+ H (Negative) Urine Ketones 3+ H (Negative) Urine Occult Blood 2+ H (Negative) Urine Nitrite Negative (Negative) Urine Bilirubin Negative (Negative) Urine Urobilinogen 0.2 (0.2-1.0) Ur Leukocyte Esterase Negative (Negative) Urine RBC 0-5 (0-5) /hpf Urine WBC 0-5 (0-5) /hpf Ur Epithelial Cells 0-5 (0-5) /hpf Urine Bacteria Rare (FEW) /hpf Urine Mucus Many H (FEW) /hpf Urine Opiates Screen (NEGATIVE) Ur Buprenorphine Scrn (NEGATIVE) Ur Oxycodone Screen (NEGATIVE) Urine Methadone Screen (NEGATIVE) Ur Propoxyphene Screen (NEGATIVE) Ur Barbiturates Screen (NEGATIVE) Ur Tricyclics Screen (NEGATIVE) Ur Phencyclidine Scrn (NEGATIVE) Ur Amphetamine Screen (NEGATIVE) U Methamphetamines Scrn (NEGATIVE) U Benzodiazepines Scrn (NEGATIVE) U Cocaine Metab Screen (NEGATIVE) U Marijuana (THC) Screen (NEGATIVE) 12/19/17 Range/Units 19:03 WBC (4.23-9.07) K/mm3 RBC (4.63-6.08) M/mm3 Hgb (13.7-17.5) gm/L Hct (40.1-51.0) % MCV (79.0-92.2) fl MCH (25.7-32.2) pg MCHC (32.2-35.5) g/dl RDW Std Deviation (35.1-43.9) fL Plt Count (163-337) K/mm3 MPV (9.4-12.3) fl Neutrophils % (Manual) (40-60) % Band Neutrophils % (0-10) % Lymphocytes % (Manual) (20-40) % Atypical Lymphs % % Monocytes % (Manual) (2-10) % Eosinophils % (Manual) (0.8-7.0) % Basophils % (Manual) (0.2-1.2) Platelet Estimate Plt Morphology Comment Microcytosis RBC Morph Comment Sodium (136-145) mEq/L Potassium (3.5-5.1) mEq/L Chloride (98-107) mEq/L Carbon Dioxide (21-32) mEq/L Anion Gap (5-15) BUN (7-18) mg/dL Creatinine (0.7-1.3) mg/dL Est Cr Clr Drug Dosing mL/min Estimated GFR (MDRD) (>60) mL/min BUN/Creatinine Ratio (14-18) Glucose (74-106) mg/dL Calcium (8.5-10.1) mg/dL Total Bilirubin (0.2-1.0) mg/dL AST (15-37) U/L ALT (16-63) U/L Alkaline Phosphatase (46-116) U/L C-Reactive Protein (<1.0) mg/dL Total Protein (6.4-8.2) g/dl Albumin (3.4-5.0) g/dl Globulin gm/dL Albumin/Globulin Ratio (1-2) Lipase (73-393) U/L Urine Color (Yellow) Urine Appearance (Clear) Urine pH (5.0-8.0) Ur Specific [place] (1.005-1.030) Urine Protein (Negative) Urine Glucose (UA) (Negative) Urine Ketones (Negative) Urine Occult Blood (Negative) Urine Nitrite (Negative) Urine Bilirubin (Negative) Urine Urobilinogen (0.2-1.0) Ur Leukocyte Esterase (Negative) Urine RBC (0-5) /hpf Urine WBC (0-5) /hpf Ur Epithelial Cells (0-5) /hpf Urine Bacteria (FEW) /hpf Urine Mucus (FEW) /hpf Urine Opiates Screen Negative (NEGATIVE) Ur Buprenorphine Scrn Negative (NEGATIVE) Ur Oxycodone Screen Negative (NEGATIVE) Urine Methadone Screen Negative (NEGATIVE) Ur Propoxyphene Screen Negative (NEGATIVE) Ur Barbiturates Screen Negative (NEGATIVE) Ur Tricyclics Screen Negative (NEGATIVE) Ur Phencyclidine Scrn Negative (NEGATIVE) Ur Amphetamine Screen Negative (NEGATIVE) U Methamphetamines Scrn Negative (NEGATIVE) U Benzodiazepines Scrn Negative (NEGATIVE) U Cocaine Metab Screen Negative (NEGATIVE) U Marijuana (THC) Screen Presumptive positive H (NEGATIVE) Meds: Medications Discontinued Medications Generic Name Dose Route Start Last Admin Trade Name Angie PRN Reason Stop Dose Admin Diphenhydramine HCl 50 mg 12/19/17 17:21 12/19/17 17:49 Benadryl IVPUSH 12/19/17 17:22 50 mg ONETIME ONE Administration Haloperidol Lactate 5 mg 12/19/17 19:55 12/19/17 20:01 Haldol IVPUSH 12/19/17 19:56 5 mg ONETIME ONE Administration Sodium Chloride 1,000 mls @ 999 mls/hr 12/19/17 17:21 12/19/17 17:48 Normal Saline IV 12/19/17 18:21 999 mls/hr ONETIME ONE Administration Sodium Chloride 1,000 mls @ 999 mls/hr 12/19/17 18:55 12/19/17 19:03 Normal Saline IV 12/19/17 19:55 999 mls/hr ONETIME ONE Administration Ketorolac Tromethamine 30 mg 12/19/17 17:21 12/19/17 17:50 Toradol IVPUSH 12/19/17 17:22 30 mg ONETIME ONE Administration Metoclopramide HCl 7.5 mg 12/19/17 17:21 12/19/17 17:46 Reglan IVPUSH 12/19/17 17:22 7.5 mg ONETIME ONE Administration - Re-Assessments/Exams Free Text/Narrative Re-Assessment/Exam: 12/19/17 20:03 I reviewed the labs with the patient. I Do not feel that he needs any additional imaging as he just had a CT earlier this week and abdominal x-ray which were both negative. I do feel this is hyperemesis related to marijuana abuse as he has appreciated that hot showers seem to make his nausea and abdominal discomfort better. He states tonight he has felt improvement with the Toradol, Reglan and Benadryl. he reports that when he attempted to of the bathroom the colder hit him and that seemed to make the abdominal pain worse. I ordered Haldol as up-to-date indicates that haldol has improved patient's symptoms with hyperemesis. I reviewed everything with him and I do feel that this is likely the cause. Recommend stopping using marijuana. Symptomatic care in the meantime. Will discharge home at this time. Discharge instructions as documented. Departure - Departure Time of Disposition: 20:07 Disposition: Home, Self-Care 01 Condition: Fair Clinical Impression: Cannabis hyperemesis syndrome concurrent with and due to cannabis abuse Abdominal pain Qualifiers: Abdominal location: upper abdomen, unspecified Qualified Code(s): R10.10 - Upper abdominal pain, unspecified Nausea & vomiting Qualifiers: Vomiting type: unspecified Vomiting Intractability: non-intractable Qualified Code(s): R11.2 - Nausea with vomiting, unspecified - Discharge Information *PRESCRIPTION DRUG MONITORING PROGRAM REVIEWED*: No *COPY OF PRESCRIPTION DRUG MONITORING REPORT IN PATIENT DION: No Prescriptions: Ondansetron [Zofran ODT] 4 mg PO Q6H PRN #15 tab.dis PRN Reason: Nausea Instructions: Nausea and Vomiting, Adult, [id number], Abdominal Pain, Adult, [id number], Cannabinoid Hyperemesis Syndrome Referrals: PCP,None [Primary Care Provider] - Forms: ED Department Discharge Additional Instructions: Recommend you stop using marijuana. Marijuana can cause nausea, vomiting and abdominal pain. Symptomatic care while your symptoms are improving. Hot showers may help improve your symptoms. zofran 1 tab sublingual every 6-8 hours prn nausea. Clear fluids and a bland diet. [place] diet recommendations include bread, rice, bananas, applesauce, toast, etc. Follow-up with your PCP if not much better within one week. Please return to the ER should your symptoms change or worsen.
== END 2017-12-19 20:18 | disposition home or self-care (01) ==
LOC: JD.ED 15:42
DX: F12.188 Cannabis abuse with other cannabis-induced disorder (principal); R11.2 Nausea with vomiting, unspecified; R10.10 Upper abdominal pain, unspecified; E11.9 Type 2 diabetes mellitus without complications; Z79.899 Other long term (current) drug therapy; Z79.4 Long term (current) use of insulin
CPT/HCPCS: 36415; 80053; 80306; 81001; 83690; 85007; 85027; 86140; 96361; 96374; 96375; 99285; J1200; J1630; J1885; J2765; J7040; 99284

== ENCOUNTER 2018-07-26 20:36 | Emergency (ER) | payer MEDICAID ==
[2018-07-26] MEDS ORDERED: Sodium Chloride 0.9% 1,000 ML IV SCH (21:00)
[2018-07-26] MEDS ORDERED: Alum Hydrox/Mag Hydrox/Simeth 30 ML, Lidocaine 2% 15 ML PO ONE ×2 (21:12)
[2018-07-26] MEDS ORDERED: Metoclopramide 10 MG/2 ML SDV IVPUSH ONE (21:12)
[2018-07-26] MEDS ORDERED: Ketorolac 30 MG/ML SDV IVPUSH ONE (21:12)
[2018-07-26] MEDS ORDERED: Sodium Chloride 0.9% 10 ML Syringe FLUSH PRN (21:12)
--- NOTE | 2018-07-26 21:33 | EDM.PDOC ---
ED HPI GENERAL MEDICAL PROBLEM - General Chief Complaint: Abdominal Pain Stated Complaint: ABDOMINAL PAIN BACK PAIN COUGH Time Seen by Provider: 07/26/18 20:53 Source of Information: Reports: Patient, Family, Old Records, RN Notes Reviewed History Limitations: Reports: No Limitations - History of Present Illness INITIAL COMMENTS - FREE TEXT/NARRATIVE: Patient is a 32-year-old male who presents to the ED for the evaluation of abdominal pain, vomiting, diarrhea since Friday. The patient states all of this started Friday morning, where he started vomiting and having episodes of diarrhea. The patient states that he wasn't able to keep much down so he stopped eating regular foods Friday, he states that he felt a little bit better on Friday so he decided he could start eating again. he became sick with vomiting and diarrhea again. He states after the episode he stopped eating regular foods again until Friday. He stated in the interim he was trying to do a clear liquid diet and drink things such as vitamin water. He states that nothing really stays down. And when it does stay down it goes straight through him. He states that his diarrhea recently is green in color. He hasn't been able to take much for pain, as it hasn't been able to stay down long enough to work. The patient is unsure if he could' ve had some questionable food on Friday that would have started some any symptoms. The patient notes a previous history of a laparoscopic cholecystectomy, lap appendectomy, and a history of H. pylori for which she was getting treatment for (however he states that the treatment made him even more sick). He states that taking hot showers/baths make his symptoms feel a little bit better. He notes that he smokes cigarettes, one pack per day every 3 or 4 days, does not use much alcohol, and does smoke marijuana, he states the last time he used marijuana was last night, he states that he was only able to get smoke this last Friday, and that he did not smoke any marijuana before his symptoms started. The patient states he's had similar symptoms in the past, however this has been more worrisome for him at this time. He states that he does follow up in clinic with Luzmaria from [facility], and does see a GI specialist in [place] on August. Abdominal Pain Score (Numeric/FACES): 8 - Related Data Allergies Allergy/AdvReac Type Severity Reaction Status Date / Time No Known Allergies Allergy Verified 07/26/18 20:53 Home Meds: Home Meds Cyclobenzaprine HCl 5 mg PO Q8H PRN 06/03/17 [History] Dicyclomine [Bentyl] 20 mg PO Q6H PRN #30 tab 07/26/18 [Rx] Omeprazole 40 mg PO ACBREAKFAST 07/26/18 [History] Ondansetron [Zofran ODT] 4 mg PO Q8H PRN #28 tab.dis 07/26/18 [Rx] Past Medical History Gastrointestinal History: Reports: Other (See Below) Other Gastrointestinal History: torn abdominal muscles past 2 weeks. N/V for past 3 days. States had BM yesterday. Musculoskeletal History: Reports: Other (See Below) Other Musculoskeletal History: muscle tear Dx recently. Endocrine/Metabolic History: Reports: Diabetes, Type II, IDDM Other Endocrine/Metabolic History: states "suppose to be" on insulin--has not taken for 2 months. - Past Surgical History GI Surgical History: Reports: Appendectomy Social & Family History - Tobacco Use Smoking Status *Q: Current Every Day Smoker Years of Tobacco use: 10 Packs/Tins Daily: 0.4 - Caffeine Use Caffeine Use: Reports: Soda - Recreational Drug Use Recreational Drug Use: Yes Drug Use in Last 12 Months: Yes Recreational Drug Type: Reports: Marijuana/Hashish ED ROS GENERAL - Review of Systems Review Of Systems: See Below Constitutional: Denies: Fever, Chills, Malaise HEENT: Reports: No Symptoms Respiratory: Reports: Cough Cardiovascular: Reports: No Symptoms Endocrine: Reports: No Symptoms GI/Abdominal: Reports: Abdominal Pain (generalized diffuse), Diarrhea, Nausea, Vomiting. Denies: Black Stool, Bloody Stool : Reports: No Symptoms Musculoskeletal: Reports: Muscle Pain (generalized myalgias) Skin: Reports: No Symptoms Neurological: Reports: No Symptoms Psychiatric: Reports: No Symptoms Hematologic/Lymphatic: Reports: No Symptoms Immunologic: Reports: No Symptoms ED EXAM, GI/ABD - Physical Exam Exam: See Below Exam Limited By: No Limitations General Appearance: Alert, WD/WN, Mild Distress (pt appears to be in mild distress d/t pain) Eyes: Bilateral: Normal Appearance Ears: Normal External Exam Nose: Normal Inspection Throat/Mouth: Normal Inspection, Normal Oropharynx Head: Atraumatic Neck: Normal Inspection Respiratory/Chest: No Respiratory Distress, Lungs Clear, Normal Breath Sounds, No Accessory Muscle Use, Chest Non-Tender Cardiovascular: Normal Peripheral Pulses, Regular Rate, Rhythm, No Murmur GI/Abdominal Exam: Soft, No Distention, No Mass, Tender (generalized diffuse), Abnormal Bowel Sounds (hypoactive) Extremities: Normal Inspection, Normal Capillary Refill Neurological: Alert, Oriented, Normal Cognition, No Motor/Sensory Deficits Psychiatric: Normal Affect, Normal Mood Skin Exam: Warm, Dry, Intact, Normal Color, No Rash Course - Vital Signs Last Recorded V/S: Last Vital Signs Temp 97.8 F 07/26/18 20:45 Pulse 87 07/26/18 20:45 Resp 17 07/26/18 20:45 BP 118/78 07/26/18 20:45 Pulse Ox 99 07/26/18 20:45 Orthostatic Blood Pressure [ 101/63 Standing] Orthostatic Blood Pressure [ 101/64 Sitting] Orthostatic Blood Pressure [ 96/59 Supine] - Orders/Labs/Meds Orders: Active Orders 24 hr Category Date Time Status Orthostatic Vital Signs [RC] ASDIRECTED Care 07/26/18 21:12 Ordered Peripheral IV Care [RC] . DIRECTED Care 07/26/18 21:12 Ordered Sodium Chloride 0.9% [Normal Saline] 1,000 ml Med 07/26/18 21:00 Ordered IV ASDIRECTED Sodium Chloride 0.9% [Saline Flush] Med 07/26/18 21:12 Ordered 10 ml FLUSH ASDIRECTED PRN Peripheral IV Insertion Adult [OM.PC] Routine Oth 07/26/18 21:12 Ordered Medication Orders Sodium Chloride (Normal Saline) 1,000 mls @ 999 mls/hr IV ASDIRECTED PARISH Last Admin: 07/26/18 21:23 Dose: 999 mls/hr Sodium Chloride (Saline Flush) 10 ml FLUSH ASDIRECTED PRN PRN Reason: Keep Vein Open Last Admin: 07/26/18 21:25 Dose: 10 ml Labs: Laboratory Tests 07/26/18 07/26/18 07/26/18 Range/Units 21:00 21:00 21:53 WBC 5.95 (4.23-9.07) K/mm3 RBC 3.92 L (4.63-6.08) M/mm3 Hgb 11.4 L D (13.7-17.5) gm/L Hct 32.4 L (40.1-51.0) % MCV 82.7 (79.0-92.2) fl MCH 29.1 (25.7-32.2) pg MCHC 35.2 (32.2-35.5) g/dl RDW Std Deviation 38.0 (35.1-43.9) fL Plt Count 220 (163-337) K/mm3 MPV 8.9 L (9.4-12.3) fl Neutrophils % (Manual) 67 H (40-60) % Band Neutrophils % 0 (0-10) % Lymphocytes % (Manual) 23 (20-40) % Atypical Lymphs % 0 % Monocytes % (Manual) 10 (2-10) % Eosinophils % (Manual) 0 L (0.8-7.0) % Basophils % (Manual) 0 L (0.2-1.2) Platelet Estimate Adequate RBC Morph Comment Normal Sodium 135 L (136-145) mEq/L Potassium 3.9 (3.5-5.1) mEq/L Chloride 102 (98-107) mEq/L Carbon Dioxide 24 (21-32) mEq/L Anion Gap 12.9 (5-15) BUN 12 (7-18) mg/dL Creatinine 1.0 (0.7-1.3) mg/dL Est Cr Clr Drug Dosing 98.23 mL/min Estimated GFR (MDRD) > 60 (>60) mL/min BUN/Creatinine Ratio 12.0 L (14-18) Glucose 223 H (74-106) mg/dL Calcium 8.9 (8.5-10.1) mg/dL Total Bilirubin 0.3 (0.2-1.0) mg/dL AST 11 L (15-37) U/L ALT 20 (16-63) U/L Alkaline Phosphatase 120 H (46-116) U/L Total Protein 7.1 (6.4-8.2) g/dl Albumin 3.6 (3.4-5.0) g/dl Globulin 3.5 gm/dL Albumin/Globulin Ratio 1.0 (1-2) Lipase 75 (73-393) U/L Urine Color Katty H (Yellow) Urine Appearance Slt cloudy H (Clear) Urine pH 6.0 (5.0-8.0) Ur Specific Chelsea > or = 1.030 (1.005-1.030) Urine Protein 1+ H (Negative) Urine Glucose (UA) 2+ H (Negative) Urine Ketones 2+ H (Negative) Urine Occult Blood Negative (Negative) Urine Nitrite Negative (Negative) Urine Bilirubin 1+ H (Negative) Urine Urobilinogen 0.2 (0.2-1.0) Ur Leukocyte Esterase Negative (Negative) Urine RBC 0-5 (0-5) /hpf Urine WBC 0-5 (0-5) /hpf Ur Squamous Epith Cells 0-5 (0-5) /hpf Urine Bacteria Few H (FEW) /hpf Urine Mucus Many H (FEW) /hpf Urine Opiates Screen (OZRQJH=936) Ur Buprenorphine Scrn (CUTOFF=10) Ur Oxycodone Screen (ZMR8JR=301) Urine Methadone Screen (JUE3PZ=535) Ur Propoxyphene Screen (WLGOHY=755) Ur Barbiturates Screen (CXBKLA=204) Ur Tricyclics Screen (FKAZQK=898) Ur Phencyclidine Scrn (CUTOFF=25) Ur Amphetamine Screen (ZGBTWU=679) U Methamphetamines Scrn (GWXWXK=746) U Benzodiazepines Scrn (EPEPSN=164) U Cocaine Metab Screen (HEDHTR=837) U Marijuana (THC) Screen (CUTOFF=50) 07/26/18 Range/Units 21:53 WBC (4.23-9.07) K/mm3 RBC (4.63-6.08) M/mm3 Hgb (13.7-17.5) gm/L Hct (40.1-51.0) % MCV (79.0-92.2) fl MCH (25.7-32.2) pg MCHC (32.2-35.5) g/dl RDW Std Deviation (35.1-43.9) fL Plt Count (163-337) K/mm3 MPV (9.4-12.3) fl Neutrophils % (Manual) (40-60) % Band Neutrophils % (0-10) % Lymphocytes % (Manual) (20-40) % Atypical Lymphs % % Monocytes % (Manual) (2-10) % Eosinophils % (Manual) (0.8-7.0) % Basophils % (Manual) (0.2-1.2) Platelet Estimate RBC Morph Comment Sodium (136-145) mEq/L Potassium (3.5-5.1) mEq/L Chloride (98-107) mEq/L Carbon Dioxide (21-32) mEq/L Anion Gap (5-15) BUN (7-18) mg/dL Creatinine (0.7-1.3) mg/dL Est Cr Clr Drug Dosing mL/min Estimated GFR (MDRD) (>60) mL/min BUN/Creatinine Ratio (14-18) Glucose (74-106) mg/dL Calcium (8.5-10.1) mg/dL Total Bilirubin (0.2-1.0) mg/dL AST (15-37) U/L ALT (16-63) U/L Alkaline Phosphatase (46-116) U/L Total Protein (6.4-8.2) g/dl Albumin (3.4-5.0) g/dl Globulin gm/dL Albumin/Globulin Ratio (1-2) Lipase (73-393) U/L Urine Color (Yellow) Urine Appearance (Clear) Urine pH (5.0-8.0) Ur Specific Chelsea (1.005-1.030) Urine Protein (Negative) Urine Glucose (UA) (Negative) Urine Ketones (Negative) Urine Occult Blood (Negative) Urine Nitrite (Negative) Urine Bilirubin (Negative) Urine Urobilinogen (0.2-1.0) Ur Leukocyte Esterase (Negative) Urine RBC (0-5) /hpf Urine WBC (0-5) /hpf Ur Squamous Epith Cells (0-5) /hpf Urine Bacteria (FEW) /hpf Urine Mucus (FEW) /hpf Urine Opiates Screen Presumptive positive H (EJRLEK=159) Ur Buprenorphine Scrn Negative (CUTOFF=10) Ur Oxycodone Screen Presumptive positive H (BYN0WP=710) Urine Methadone Screen Negative (HIP9VK=972) Ur Propoxyphene Screen Negative (KFNEYY=241) Ur Barbiturates Screen Negative (SNNIMN=437) Ur Tricyclics Screen Presumptive positive H (FJAJGA=573) Ur Phencyclidine Scrn Negative (CUTOFF=25) Ur Amphetamine Screen Negative (DKPXPN=397) U Methamphetamines Scrn Negative (GFYQJY=998) U Benzodiazepines Scrn Negative (JQNVOC=448) U Cocaine Metab Screen Negative (SZELHC=927) U Marijuana (THC) Screen Presumptive positive H (CUTOFF=50) Meds: Medications Generic Name Dose Route Start Last Admin Trade Name Angie PRN Reason Stop Dose Admin Sodium Chloride 1,000 mls @ 999 mls/hr 07/26/18 21:00 07/26/18 21:23 Normal Saline IV 999 mls/hr ASDIRECTED PARISH Administration Sodium Chloride 10 ml 07/26/18 21:12 07/26/18 21:25 Saline Flush FLUSH 10 ml ASDIRECTED PRN Administration Keep Vein Open Discontinued Medications Generic Name Dose Route Start Last Admin Trade Name Angie PRN Reason Stop Dose Admin Al Hydroxide/Mg Hydroxide 30 0 ml 07/26/18 21:12 07/26/18 21:24 ml/ Lidocaine HCl 15 ml PO 07/26/18 21:13 45 ml ONETIME ONE Administration Dicyclomine HCl 10 mg 07/26/18 22:27 Bentyl PO 07/26/18 22:28 ONETIME ONE Dicyclomine HCl 20 mg 07/26/18 22:37 Bentyl PO 07/26/18 22:38 ONETIME ONE Ketorolac Tromethamine 30 mg 07/26/18 21:12 07/26/18 21:25 Toradol IVPUSH 07/26/18 21:13 30 mg ONETIME ONE Administration Metoclopramide HCl 10 mg 07/26/18 21:12 07/26/18 21:24 Reglan IVPUSH 07/26/18 21:13 10 mg ONETIME ONE Administration - Re-Assessments/Exams Free Text/Narrative Re-Assessment/Exam: 07/26/18 21:37 Patient presents to the ED for evaluation of vomiting and diarrhea for the past week. I have reviewed his old records, and he has had symptoms suspicious for cannabis hyperemesis syndrome, he states that he only smoked pot last night and this was a one-time instance. He states that the symptoms started before he smoked pot, however he states that getting in a hot shower makes him feel a little bit better. I have ordered a CBC, CMP, lipase, UA and a drug screen for initial labs, IV fluid bolus, GI cocktail, 30 mg IV Toradol, 10 mg IV Reglan, and ortho vital signs for initial management. 07/26/18 22:21 Patient's labs have returned, and are unremarkable at this time. His urine drug screen was presumptive positive for opiates, oxycodone, tricyclics, and marijuana. He states on his home medications that he is only taking omeprazole and cyclobenzaprine. I did check PDMP and he did have a prescription filled for hydrocodone 08/07/24's on 11 May 2018. The gentleman symptoms might be due to a combination of gastroenteritis in nature with the possibility of the cannabis hyperemesis syndrome. 07/26/18 22:33 Patient again states that the only medications he takes at home are omeprazole, and Bentyl, he states he had recently ran out of Bentyl however. I we will provide him with a prescription for Bentyl and Zofran as needed for further symptomatic relief. He did feel much better after the IV bag of fluids, Reglan , 30 mg Toradol. I will discharge him home with general recommendations Departure - Departure Time of Disposition: 22:30 Disposition: Home, Self-Care 01 Condition: Fair Clinical Impression: Viral gastroenteritis Abdominal pain Qualifiers: Abdominal location: generalized Qualified Code(s): R10.84 - Generalized abdominal pain - Discharge Information *PRESCRIPTION DRUG MONITORING PROGRAM REVIEWED*: No *COPY OF PRESCRIPTION DRUG MONITORING REPORT IN PATIENT DION: No Prescriptions: Dicyclomine [Bentyl] 20 mg PO Q6H PRN #30 tab PRN Reason: Abdominal Pain Ondansetron [Zofran ODT] 4 mg PO Q8H PRN #28 tab.dis PRN Reason: Nausea Instructions: Viral Gastroenteritis, Adult, [id number] Referrals: PCP,None [Primary Care Provider] - Forms: ED Department Discharge Additional Instructions: You have been evaluated in the ED for nausea/vomiting/diarrhea. It is likely that this is caused from a viral gastroenteritis. You have received IV fluid in the ED to help with the dehydration from the vomiting and diarrhea. Over the next 24-48 hours please try to limit your diet to clear liquids or bland diet to alleviate symptoms of nausea/vomiting/diarrhea. Please use the Zofran every 8 hours as needed for nausea. Please take the Bentyl every 6 hours as needed for abdominal cramps. These medications were electronically sent to [facility] located in [place], [place]. You may take up to 600 mg ibuprofen every 6 hours as needed for general aches and pains. Please return to the ED if your symptoms should change or worsen. - My Orders Last 24 Hours: My Active Orders 07/26/18 21:00 Sodium Chloride 0.9% [Normal Saline] 1,000 ml IV ASDIRECTED 07/26/18 21:12 Orthostatic Vital Signs [RC] ASDIRECTED Peripheral IV Care [RC] . DIRECTED Sodium Chloride 0.9% [Saline Flush] 10 ml FLUSH ASDIRECTED PRN Peripheral IV Insertion Adult [OM.PC] Routine - Assessment/Plan Last 24 Hours: My Active Orders 07/26/18 21:00 Sodium Chloride 0.9% [Normal Saline] 1,000 ml IV ASDIRECTED 07/26/18 21:12 Orthostatic Vital Signs [RC] ASDIRECTED Peripheral IV Care [RC] . DIRECTED Sodium Chloride 0.9% [Saline Flush] 10 ml FLUSH ASDIRECTED PRN Peripheral IV Insertion Adult [OM.PC] Routine
[2018-07-26] MEDS ORDERED: Dicyclomine 10 MG Cap PO ONE ×2 (22:27→22:37)
== END 2018-07-26 22:45 | disposition home or self-care (01) ==
LOC: JD.ED 20:36
DX: A08.4 Viral intestinal infection, unspecified (principal); F17.210 Nicotine dependence, cigarettes, uncomplicated
CPT/HCPCS: 36415; 80053; 80306; 81001; 83690; 85007; 85027; 96361; 96374; 96375; 99284; A9270; J1885; J2765; J7040

== ENCOUNTER 2018-07-29 16:49 | Emergency (ER) | payer MEDICAID ==
[2018-07-29] MEDS: Ondansetron 4 MG/2 ML SDV IVPUSH ONE (17:35)
[2018-07-29] MEDS: Sodium Chloride 0.9% 1,000 ML IV STA (17:35)
[2018-07-29] MEDS: HYDROmorphone 1 MG/ML Syringe IVPUSH ONE ×2 (17:37→19:04)
--- NOTE | 2018-07-29 18:58 | EDM.PDOC ---
ED HPI GENERAL MEDICAL PROBLEM - General Chief Complaint: Abdominal Pain Stated Complaint: ABDOMINAL PAIN AND VOMITING NOT BETTER Time Seen by Provider: 07/29/18 17:15 Source of Information: Reports: Patient History Limitations: Reports: No Limitations - History of Present Illness INITIAL COMMENTS - FREE TEXT/NARRATIVE: The patient presents with abdominal pain. This has been an ongoing problem for months. He was seen here a few days ago and given bentyl but the pain is back. He has nausea, vomiting, generalized abdominal pain. He has no dysuria. He has no diarrhea. He is scheduled to see GI on the 13 of August. Onset: Gradual Duration: Week(s): Location: Reports: Abdomen Quality: Reports: Sharp Severity: Moderate Improves with: Reports: None Worsens with: Reports: None Associated Symptoms: Reports: Nausea/Vomiting. Denies: Chest Pain, Cough, Fever /Chills, Headaches, Shortness of Breath Abdomen Pain Score (Numeric/FACES): 9 - Related Data Allergies Allergy/AdvReac Type Severity Reaction Status Date / Time No Known Allergies Allergy Verified 07/29/18 17:16 Home Meds: Home Meds Cyclobenzaprine HCl 5 mg PO Q8H PRN 06/03/17 [History] Dicyclomine [Bentyl] 20 mg PO Q6H PRN #30 tab 07/26/18 [Rx] Omeprazole 40 mg PO ACBREAKFAST 07/26/18 [History] Ondansetron [Zofran ODT] 4 mg PO Q8H PRN #28 tab.dis 07/26/18 [Rx] Hydrocodone/Acetaminophen [Hydrocodon-Acetaminophen 5-325] 1 - 2 each PO Q6HR PRN #20 tablet 07/29/18 [Rx] Ondansetron [Zofran ODT] 4 mg PO Q6H PRN #20 tab.dis 07/29/18 [Rx] Past Medical History Gastrointestinal History: Reports: Other (See Below) Other Gastrointestinal History: torn abdominal muscles past 2 weeks. N/V for past 3 days. States had BM yesterday. Musculoskeletal History: Reports: Other (See Below) Other Musculoskeletal History: muscle tear Dx recently. Endocrine/Metabolic History: Reports: Diabetes, Type II, IDDM Other Endocrine/Metabolic History: states "suppose to be" on insulin--has not taken for 2 months. - Past Surgical History GI Surgical History: Reports: Appendectomy Social & Family History - Tobacco Use Smoking Status *Q: Current Every Day Smoker Years of Tobacco use: 15 Packs/Tins Daily: 0.5 - Caffeine Use Caffeine Use: Reports: Coffee - Recreational Drug Use Recreational Drug Use: Yes Drug Use in Last 12 Months: Yes Recreational Drug Type: Reports: Marijuana/Hashish Recreational Drug Use Frequency: Socially ED ROS GENERAL - Review of Systems Review Of Systems: See Below Constitutional: Reports: No Symptoms HEENT: Reports: No Symptoms Respiratory: Reports: No Symptoms Cardiovascular: Reports: No Symptoms Endocrine: Reports: No Symptoms GI/Abdominal: Reports: Abdominal Pain, Nausea, Vomiting. Denies: Diarrhea ED EXAM, GI/ABD - Physical Exam Exam: See Below Exam Limited By: No Limitations General Appearance: Alert, No Apparent Distress Ears: Normal External Exam Nose: Normal Inspection Head: Atraumatic, Normocephalic Neck: Normal Inspection Respiratory/Chest: No Respiratory Distress, Lungs Clear, Normal Breath Sounds Cardiovascular: Regular Rate, Rhythm, No Edema, No Murmur GI/Abdominal Exam: Soft, Non-Tender, No Organomegaly, No Mass Back Exam: Normal Inspection Extremities: Normal Inspection Neurological: Alert, Oriented, No Motor/Sensory Deficits Course - Vital Signs Last Recorded V/S: Last Vital Signs Temp 98.6 F 07/29/18 17:13 Pulse 89 07/29/18 17:13 Resp 18 07/29/18 17:13 BP 149/95 H 07/29/18 17:13 Pulse Ox 98 07/29/18 17:13 - Orders/Labs/Meds Orders: Active Orders 24 hr Category Date Time Status Abdomen Series w Chest 1V [CR] Stat Exams 07/29/18 17:27 Taken UA W/MICROSCOPIC [URIN] Stat Lab 07/29/18 17:27 Ordered ED Antiemetic Medication Reflex [OM.PC] Stat Oth 07/29/18 17:27 Ordered Labs: Laboratory Tests 07/29/18 07/29/18 Range/Units 17:30 17:30 WBC 7.76 (4.23-9.07) K/mm3 RBC 3.95 L (4.63-6.08) M/mm3 Hgb 11.3 L (13.7-17.5) gm/L Hct 32.4 L (40.1-51.0) % MCV 82.0 (79.0-92.2) fl MCH 28.6 (25.7-32.2) pg MCHC 34.9 (32.2-35.5) g/dl RDW Std Deviation 36.9 (35.1-43.9) fL Plt Count 211 (163-337) K/mm3 MPV 8.3 L (9.4-12.3) fl Neut % (Auto) 72.7 H (34.0-67.9) % Lymph % (Auto) 17.3 L (21.8-53.1) % Cocke % (Auto) 8.0 (5.3-12.2) % Eos % (Auto) 1.8 (0.8-7.0) Baso % (Auto) 0.1 (0.1-1.2) % Neut # (Auto) 5.64 H (1.78-5.38) K/mm3 Lymph # (Auto) 1.34 (1.32-3.57) K/mm3 Cocke # (Auto) 0.62 (0.30-0.82) K/mm3 Eos # (Auto) 0.14 (0.04-0.54) K/mm3 Baso # (Auto) 0.01 (0.01-0.08) K/mm3 Sodium 138 (136-145) mEq/L Potassium 3.6 (3.5-5.1) mEq/L Chloride 101 (98-107) mEq/L Carbon Dioxide 28 (21-32) mEq/L Anion Gap 12.6 (5-15) BUN 7 (7-18) mg/dL Creatinine 0.6 L (0.7-1.3) mg/dL Est Cr Clr Drug Dosing 163.72 mL/min Estimated GFR (MDRD) > 60 (>60) mL/min BUN/Creatinine Ratio 11.7 L (14-18) Glucose 157 H (74-106) mg/dL Calcium 8.7 (8.5-10.1) mg/dL Total Bilirubin 0.5 (0.2-1.0) mg/dL AST 13 L (15-37) U/L ALT 20 (16-63) U/L Alkaline Phosphatase 126 H (46-116) U/L Total Protein 7.1 (6.4-8.2) g/dl Albumin 3.6 (3.4-5.0) g/dl Globulin 3.5 gm/dL Albumin/Globulin Ratio 1.0 (1-2) Lipase 84 (73-393) U/L Meds: Medications Discontinued Medications Generic Name Dose Route Start Last Admin Trade Name Freq PRN Reason Stop Dose Admin Hydromorphone HCl 1 mg 07/29/18 17:29 07/29/18 17:37 Dilaudid IVPUSH 07/29/18 17:30 1 mg ONETIME ONE Administration Sodium Chloride 1,000 mls @ 1,000 mls/hr 07/29/18 17:27 07/29/18 17:35 Normal Saline IV 07/29/18 18:26 1,000 mls/hr .BOLUS STA Administration Ondansetron HCl 4 mg 07/29/18 17:27 07/29/18 17:35 Zofran IVPUSH 07/29/18 17:28 4 mg ONETIME ONE Administration - Re-Assessments/Exams Free Text/Narrative Re-Assessment/Exam: 07/29/18 18:59 I ordered an IV NS 1L bolus, zofran 4mg IV, dilaudid 1mg IV, labs and an x-ray of his abdomen and chest. His 07/29/18 19:00 His WBC was normal. His Hgb was low at 11.3. His glucose was 137. His alk phos was elevated at 126. He still has pain so I ordered more dilaudid. His x- ray shows a mild amount of stool. I will give him something for pain and nausea. Departure - Departure Time of Disposition: 19:05 Disposition: Home, Self-Care 01 Condition: Good Clinical Impression: Abdominal pain Qualifiers: Abdominal location: generalized Qualified Code(s): R10.84 - Generalized abdominal pain Nausea & vomiting Qualifiers: Vomiting type: unspecified Vomiting Intractability: non-intractable Qualified Code(s): R11.2 - Nausea with vomiting, unspecified - Discharge Information *PRESCRIPTION DRUG MONITORING PROGRAM REVIEWED*: No *COPY OF PRESCRIPTION DRUG MONITORING REPORT IN PATIENT DION: No Prescriptions: Hydrocodone/Acetaminophen [Hydrocodon-Acetaminophen 5-325] 1 - 2 each PO Q6HR PRN #20 tablet PRN Reason: Pain Ondansetron [Zofran ODT] 4 mg PO Q6H PRN #20 tab.dis PRN Reason: Nausea\\vomiting Referrals: PCP,Not In Area [Primary Care Provider] - Additional Instructions: Take the medication as prescribed. Follow up with your doctor. Please return if you are worse. - My Orders Last 24 Hours: My Active Orders 07/29/18 17:27 Abdomen Series w Chest 1V [CR] Stat UA W/MICROSCOPIC [URIN] Stat ED Antiemetic Medication Reflex [OM.PC] Stat - Assessment/Plan Last 24 Hours: My Active Orders 07/29/18 17:27 Abdomen Series w Chest 1V [CR] Stat UA W/MICROSCOPIC [URIN] Stat ED Antiemetic Medication Reflex [OM.PC] Stat
[2018-07-29] MEDS: diphenhydrAMINE 50 MG/ML SDV IVPUSH ONE (19:17)
[2018-07-29] MEDS: Metoclopramide 10 MG/2 ML SDV IVPUSH ONE (19:18)
--- NOTE | 2018-07-30 06:22 | CR ---
Abdominal series: Frontal view of the chest was obtained as well as supine and upright views of the abdomen. Comparison: Prior abdominal series of 12/17/17. Ingested tablet is seen within the right lower abdomen. Surgical clips are seen overlying the right hemipelvis as well as anastomotic sutures. Previous cholecystectomy is also seen. Bowel gas pattern appears normal. No abnormal calcifications or discrete soft tissue abnormality is seen. No free air is seen. Bony structures are unremarkable. Heart size is normal. Upper mediastinum is normal. Lungs are clear. Impression: 1. Incidental findings. Nothing acute is appreciated on abdominal series. Diagnostic code #2
== END 2018-07-29 20:30 | disposition home or self-care (01) ==
LOC: JD.ED 16:49
DX: R10.84 Generalized abdominal pain (principal); R11.2 Nausea with vomiting, unspecified; E11.9 Type 2 diabetes mellitus without complications; F17.210 Nicotine dependence, cigarettes, uncomplicated; Z90.49 Acquired absence of other specified parts of digestive tract
CPT/HCPCS: 36415; 74022; 80053; 83690; 85025; 96361; 96374; 96375; 96376; 99284; J1170; J1200; J2405; J2765; J7040

== ENCOUNTER 2018-12-19 03:32 | Emergency (ER) | payer SELFPAY ==
[2018-12-19] MEDS ORDERED: HYDROmorphone 0.5 MG/0.5 ML Syringe IVPUSH ONE (04:02)
[2018-12-19] MEDS ORDERED: diphenhydrAMINE 50 MG/ML SDV IVPUSH ONE (04:02)
[2018-12-19] MEDS ORDERED: LORazepam 2 MG/ML SDV IVPUSH ONE (04:02)
[2018-12-19] MEDS ORDERED: Ondansetron 4 MG/2 ML SDV IVPUSH ONE (04:02)
--- NOTE | 2018-12-19 04:07 | EDM.PDOC ---
ED HPI GENERAL MEDICAL PROBLEM - General Chief Complaint: Abdominal Pain Stated Complaint: ABDOMINAL PAIN Time Seen by Provider: 12/19/18 03:45 Source of Information: Reports: Patient History Limitations: Reports: No Limitations - History of Present Illness INITIAL COMMENTS - FREE TEXT/NARRATIVE: This is a 33-year-old male. He has an extensive history of abdominal pain of unknown etiology. He apparently a week ago started having severe abdominal pain with nausea vomiting and diarrhea. He went to see his GI doc and he states they did a colonoscopy and an upper GI and they had him eat some radioactive eggs so they can watch it goes through his bowel. He has no point with his GI doctor in January when they will "just tell him" what is wrong with his abdomen based upon the studies they did. He says he can't drink much fluids and can't eat anything because his belly begins to hurt and he has lots of diarrhea and nausea and vomiting still. He denies any fever or chills he denies any cough or congestion. - Related Data Allergies Allergy/AdvReac Type Severity Reaction Status Date / Time No Known Allergies Allergy Verified 07/29/18 17:16 Home Meds: Home Meds Cyclobenzaprine HCl 5 mg PO Q8H PRN 06/03/17 [History] Dicyclomine [Bentyl] 20 mg PO Q6H PRN #30 tab 07/26/18 [Rx] Omeprazole 40 mg PO ACBREAKFAST 07/26/18 [History] Ondansetron [Zofran ODT] 4 mg PO Q8H PRN #28 tab.dis 07/26/18 [Rx] Hydrocodone/Acetaminophen [Hydrocodon-Acetaminophen 5-325] 1 - 2 each PO Q6HR PRN #20 tablet 07/29/18 [Rx] Ondansetron [Zofran ODT] 4 mg PO Q6H PRN #20 tab.dis 07/29/18 [Rx] Dicyclomine [Bentyl] 20 mg PO Q6H PRN #20 tablet 12/19/18 [Rx] Ondansetron [Zofran ODT] 4 mg PO Q6H PRN #20 tab.dis 12/19/18 [Rx] traMADol [Ultram] 50 mg PO Q6H PRN #20 tab 12/19/18 [Rx] Past Medical History Gastrointestinal History: Reports: Other (See Below) Other Gastrointestinal History: torn abdominal muscles past 2 weeks. N/V for past 3 days. States had BM yesterday. Musculoskeletal History: Reports: Other (See Below) Other Musculoskeletal History: muscle tear Dx recently. Endocrine/Metabolic History: Reports: Diabetes, Type II, IDDM Other Endocrine/Metabolic History: states "suppose to be" on insulin--has not taken for 2 months. - Past Surgical History GI Surgical History: Reports: Appendectomy Social & Family History - Caffeine Use Caffeine Use: Reports: Coffee ED ROS GENERAL - Review of Systems Review Of Systems: See Below Constitutional: Denies: Fever, Chills HEENT: Reports: No Symptoms Respiratory: Reports: No Symptoms Cardiovascular: Reports: No Symptoms Endocrine: Reports: No Symptoms GI/Abdominal: Reports: Abdominal Pain, Diarrhea, Nausea, Vomiting : Reports: No Symptoms Musculoskeletal: Reports: No Symptoms Skin: Reports: No Symptoms Neurological: Reports: No Symptoms Psychiatric: Reports: No Symptoms Hematologic/Lymphatic: Reports: No Symptoms ED EXAM, GI/ABD - Physical Exam Exam: See Below Exam Limited By: No Limitations General Appearance: Alert, WD/WN, Other (When I first walked into the room and introduced myself he was not complaining of any abdominal pain or grimacing, when he began to tell a story that he started to complain of abdominal pain and grimacing) Eyes: Bilateral: Normal Appearance Ears: Normal External Exam Nose: Normal Inspection Throat/Mouth: Normal Inspection, Normal Lips, Normal Voice, No Airway Compromise , Other (Mucous membranes are moist) Head: Normocephalic Neck: Supple Respiratory/Chest: No Respiratory Distress, Lungs Clear, Normal Breath Sounds Cardiovascular: Regular Rate, Rhythm, No Murmur GI/Abdominal Exam: Soft, Other (He has generalized soreness all over his abdomen though it is soft and nondistended, there does not appear to be any guarding or rigidity noted) Extremities: Normal Inspection, Normal Range of Motion Neurological: Alert, Oriented Psychiatric: Anxious Skin Exam: Warm, Dry Course - Vital Signs Last Recorded V/S: Last Vital Signs Temp 97.5 F 12/19/18 03:41 Pulse 95 12/19/18 03:41 Resp 20 12/19/18 03:41 BP 153/103 H 12/19/18 03:41 Pulse Ox 96 12/19/18 03:41 - Orders/Labs/Meds Orders: Active Orders 24 hr Category Date Time Status DRUG SCREEN, URINE [URCHEM] Stat Lab 12/19/18 04:04 Ordered UA W/MICROSCOPIC [URIN] Stat Lab 12/19/18 04:01 Ordered Sodium Chloride 0.9% [Normal Saline] 1,000 ml Med 12/19/18 04:15 Active IV ASDIRECTED Sodium Chloride 0.9% [Normal Saline] 1,000 ml Med 12/19/18 05:21 Active IV ONETIME Medication Orders Sodium Chloride (Normal Saline) 1,000 mls @ 1,000 mls/hr IV ASDIRECTED PARISH Last Admin: 12/19/18 04:10 Dose: 1,000 mls/hr Sodium Chloride (Normal Saline) 1,000 mls @ 999 mls/hr IV ONETIME ONE Stop: 12/19/18 06:21 Last Admin: 12/19/18 05:25 Dose: 999 mls/hr Labs: Laboratory Tests 12/19/18 12/19/18 Range/Units 03:51 03:51 WBC 7.06 (4.23-9.07) K/mm3 RBC 4.67 (4.63-6.08) M/mm3 Hgb 13.3 L D (13.7-17.5) gm/L Hct 37.8 L (40.1-51.0) % MCV 80.9 (79.0-92.2) fl MCH 28.5 (25.7-32.2) pg MCHC 35.2 (32.2-35.5) g/dl RDW Std Deviation 36.4 (35.1-43.9) fL Plt Count 275 (163-337) K/mm3 MPV 8.8 L (9.4-12.3) fl Neut % (Auto) 68.6 H (34.0-67.9) % Lymph % (Auto) 24.2 (21.8-53.1) % Power % (Auto) 6.9 (5.3-12.2) % Eos % (Auto) 0.1 L (0.8-7.0) Baso % (Auto) 0.1 (0.1-1.2) % Neut # (Auto) 4.83 (1.78-5.38) K/mm3 Lymph # (Auto) 1.71 (1.32-3.57) K/mm3 Power # (Auto) 0.49 (0.30-0.82) K/mm3 Eos # (Auto) 0.01 L (0.04-0.54) K/mm3 Baso # (Auto) 0.01 (0.01-0.08) K/mm3 Sodium 133 L (136-145) mEq/L Potassium 4.0 (3.5-5.1) mEq/L Chloride 98 (98-107) mEq/L Carbon Dioxide 30 (21-32) mEq/L Anion Gap 9.0 (5-15) BUN 11 (7-18) mg/dL Creatinine 0.8 (0.7-1.3) mg/dL Est Cr Clr Drug Dosing 121.64 mL/min Estimated GFR (MDRD) > 60 (>60) mL/min BUN/Creatinine Ratio 13.8 L (14-18) Glucose 175 H (74-106) mg/dL Calcium 9.6 (8.5-10.1) mg/dL Total Bilirubin 0.5 (0.2-1.0) mg/dL AST 11 L (15-37) U/L ALT 17 (16-63) U/L Alkaline Phosphatase 106 (46-116) U/L C-Reactive Protein < 0.2 (<1.0) mg/dL Total Protein 8.1 (6.4-8.2) g/dl Albumin 4.2 (3.4-5.0) g/dl Globulin 3.9 gm/dL Albumin/Globulin Ratio 1.1 (1-2) Lipase 65 L (73-393) U/L Meds: Medications Generic Name Dose Route Start Last Admin Trade Name Freq PRN Reason Stop Dose Admin Sodium Chloride 1,000 mls @ 1,000 mls/hr 12/19/18 04:15 12/19/18 04:10 Normal Saline IV 1,000 mls/hr ASDIRECTED PARISH Administration Sodium Chloride 1,000 mls @ 999 mls/hr 12/19/18 05:21 12/19/18 05:25 Normal Saline IV 12/19/18 06:21 999 mls/hr ONETIME ONE Administration Discontinued Medications Generic Name Dose Route Start Last Admin Trade Name Freq PRN Reason Stop Dose Admin Diphenhydramine HCl 25 mg 12/19/18 04:02 12/19/18 04:12 Benadryl IVPUSH 12/19/18 04:03 25 mg ONETIME ONE Administration Hydromorphone HCl 0.5 mg 12/19/18 04:02 12/19/18 04:13 Dilaudid IVPUSH 12/19/18 04:03 0.5 mg ONETIME ONE Administration Lorazepam 0.5 mg 12/19/18 04:02 12/19/18 04:15 Ativan IVPUSH 12/19/18 04:03 0.5 mg ONETIME ONE Administration Ondansetron HCl 4 mg 12/19/18 04:02 12/19/18 04:11 Zofran IVPUSH 12/19/18 04:03 4 mg ONETIME ONE Administration - Re-Assessments/Exams Free Text/Narrative Re-Assessment/Exam: 12/19/18 06:09 The patient states he is feeling much better and the belly pain and cramping ceased to have resolved. I encouraged him that since we don't have any GI doctor here in [facility] and his GI doctors in [place] if this flares up again it might be a good idea to go to [place] when they can work him up a little more effectively. In the meantime I'll give him some tramadol for pain and some Bentyl for abdominal cramps and Zofran for nausea. I cautioned him to stay on liquids as well as yogurt and soft foods and avoid meats and vegetable since they're hard to digest. 12/19/18 06:17 Dispute to the patient regarding his blood work and his CBC was normal and his CMP was normal his lipase was normal and a C-reactive protein was normal. Departure - Departure Time of Disposition: 06:10 Disposition: Home, Self-Care 01 Condition: Fair Clinical Impression: Abdominal pain Qualifiers: Abdominal location: generalized Qualified Code(s): R10.84 - Generalized abdominal pain Nausea & vomiting Qualifiers: Vomiting type: unspecified Vomiting Intractability: non-intractable Qualified Code(s): R11.2 - Nausea with vomiting, unspecified Diarrhea Qualifiers: Diarrhea type: functional diarrhea Qualified Code(s): K59.1 - Functional diarrhea - Discharge Information *PRESCRIPTION DRUG MONITORING PROGRAM REVIEWED*: Yes *COPY OF PRESCRIPTION DRUG MONITORING REPORT IN PATIENT DION: No Prescriptions: Dicyclomine [Bentyl] 20 mg PO Q6H PRN #20 tablet PRN Reason: Abdominal Pain Ondansetron [Zofran ODT] 4 mg PO Q6H PRN #20 tab.dis PRN Reason: Nausea traMADol [Ultram] 50 mg PO Q6H PRN #20 tab PRN Reason: Pain Instructions: Nausea and Vomiting, Adult, Pain Without a Known Cause Forms: ED Department Discharge Additional Instructions: Try to drink fluids but no sodas, no alcohol but more juices or Gatorade or Pedialyte, if you gets the least bit dehydrated than the belly cramping will be markedly worse, also consider having yogurt, bananas, cottage cheese and things that are easy to digest and avoid meats and vegetables since they are hard to digest, take the medication as prescribed for the nausea and the belly cramps, if the symptoms return and are severe you might consider going to [place] were your doctor is so they can do a full workup, return to the ER if needed - My Orders Last 24 Hours: My Active Orders 12/19/18 04:01 UA W/MICROSCOPIC [URIN] Stat 12/19/18 04:04 DRUG SCREEN, URINE [URCHEM] Stat 12/19/18 04:15 Sodium Chloride 0.9% [Normal Saline] 1,000 ml IV ASDIRECTED 12/19/18 05:21 Sodium Chloride 0.9% [Normal Saline] 1,000 ml IV ONETIME - Assessment/Plan Last 24 Hours: My Active Orders 12/19/18 04:01 UA W/MICROSCOPIC [URIN] Stat 12/19/18 04:04 DRUG SCREEN, URINE [URCHEM] Stat 12/19/18 04:15 Sodium Chloride 0.9% [Normal Saline] 1,000 ml IV ASDIRECTED 12/19/18 05:21 Sodium Chloride 0.9% [Normal Saline] 1,000 ml IV ONETIME
[2018-12-19] MEDS ORDERED: Sodium Chloride 0.9% 1,000 ML IV SCH (04:15)
[2018-12-19] MEDS ORDERED: Sodium Chloride 0.9% 1,000 ML IV ONE (05:21)
== END 2018-12-19 06:30 | disposition home or self-care (01) ==
LOC: JD.ED 03:32
DX: K59.1 Functional diarrhea (principal); E11.9 Type 2 diabetes mellitus without complications; Z79.899 Other long term (current) drug therapy; Z90.49 Acquired absence of other specified parts of digestive tract
CPT/HCPCS: 36415; 80053; 83690; 85025; 86140; 96361; 96374; 96375; 99284; J1170; J1200; J2060; J2405; J7040